=== PATIENT | female | born 1960 | race African-American/Black ===

== ENCOUNTER 2020-12-12 07:48 | Inpatient (IN) | payer OTHER, MEDICARE ==
[2020-12-12] VITALS (28 sets, daily range): BP systolic 71–107; BP diastolic 44–66
[~2020-12-12] VITALS: Ht 157.5 cm; Wt 55.6 kg
--- NOTE | 2020-12-12 08:11 | PHYS DOC ---
Past Medical History Past Medical History stage IV lung CA Past Surgical History: No Surgical History Smoking Status: Former Smoker Alcohol Use: None Drug Use: None General Adult EDM: Chief Complaint: DYSPNEA/RESPIRATORY DISTRESS HPI: HPI: 60-year-old female with a history of stage IV lung cancer arrives in a private home via EMS after she complained of shortness of breath for last 24 hours. Reportedly she called EMS yesterday, but she was not transferred to the hospital. This morning her shortness of breath got worse and she required submental oxygen at home due to SPO2 in the 70s. She was placed on 15 L nonrebreather by EMS prior to transfer to the emergency department with sats in the mid 90s. Patient complains of shortness of breath but is overall a poor historian secondary to her clinical condition. She states that she is a full code and wants CPR but is empatically refusing intubation. She has no family presenting with her at this time. Review of Systems: Review of Systems: Further ROS is unobtainable secondary to patient's clinical condition Heart Score: C/O Chest Pain: No Current Medications: Current Medications Medications (Trade) Dose Ordered Sig/Aaron Start Time Stop Time Status Last Admin Dose Admin Ceftriaxone Sodium (Rocephin) 2 gm 1X ONCE 12/12/20 08:15 12/12/20 08:16 UNV Furosemide (Lasix) 40 mg 1X ONCE 12/12/20 08:15 12/12/20 08:16 UNV Allergies: Allergies: Allergies Coded Allergies Type Severity Reaction Last Updated Verified No Known Drug Allergies 12/12/20 No Physical Exam: PE: Constitutional: Chronically ill, cachectic, speaks in short sentences, drowsy. HENT: Atraumatic, bilateral external ears normal, nose normal. Eyes: PERRLA, EOMI, conjunctiva normal, no discharge. Neck: Normal range of motion, supple, no stridor. Cardiovascular: Heart rate regular rhythm. 2+ radial pulses Lungs & Thorax: Moderate respiratory distress. Bilateral crackles are appreciated Abdomen: Soft, no tenderness Skin: Warm, dry. Extremities: No tenderness, no cyanosis, ROM intact, 1+ edema. Cachexia noted Neurologic: No focal deficits noted. GCS 15. Current Patient Data: Labs: Laboratory Tests Test 12/12/20 08:02 12/12/20 08:14 12/12/20 08:20 12/12/20 08:35 O2 Saturation 93 % (92-99) Arterial Blood pH 7.27 (7.35-7.45) Arterial Blood pCO2 at Patient Temp 58 mmHg (35-46) Arterial Blood pO2 at Patient Temp 82 mmHg (65-108) Arterial Blood HCO3 26 mmol/L (21-28) Arterial Blood Base Excess -2 mmol/L (-3-3) FiO2 100% bipap White Blood Count 29.0 x10^3/uL (4.0-11.0) Red Blood Count 3.47 x10^6/uL (3.50-5.40) Hemoglobin 8.2 g/dL (12.0-15.5) Hematocrit 26.9 % (36.0-47.0) Mean Corpuscular Volume 78 fL (79-100) Mean Corpuscular Hemoglobin 24 pg (25-35) Mean Corpuscular Hemoglobin Concent 31 g/dL (31-37) Red Cell Distribution Width 19.0 % (11.5-14.5) Platelet Count 263 x10^3/uL (140-400) Neutrophils (%) (Auto) 93 % (31-73) Lymphocytes (%) (Auto) 5 % (24-48) Monocytes (%) (Auto) 2 % (0-9) Eosinophils (%) (Auto) 0 % (0-3) Basophils (%) (Auto) 0 % (0-3) Neutrophils # (Auto) 26.8 x10^3/uL (1.8-7.7) Lymphocytes # (Auto) 1.5 x10^3/uL (1.0-4.8) Monocytes # (Auto) 0.6 x10^3/uL (0.0-1.1) Eosinophils # (Auto) 0.0 x10^3/uL (0.0-0.7) Basophils # (Auto) 0.1 x10^3/uL (0.0-0.2) Sodium Level 136 mmol/L (136-145) Potassium Level 6.7 mmol/L (3.5-5.1) Chloride Level 102 mmol/L (98-107) Carbon Dioxide Level 28 mmol/L (21-32) Anion Gap 6 (6-14) Blood Urea Nitrogen 50 mg/dL (7-20) Creatinine 1.1 mg/dL (0.6-1.0) Estimated GFR (Cockcroft-Gault) 61.3 Glucose Level 106 mg/dL (70-99) Lactic Acid Level 1.7 mmol/L (0.4-2.0) Calcium Level 8.2 mg/dL (8.5-10.1) Troponin I Quantitative 0.020 ng/mL (0.000-0.055) FO-Wtt-[id number]-Type Natriuretic Peptide 895 pg/mL (0-124) SARS-CoV-2 Antigen (Rapid) Negative (NEGATIVE) Urine Collection Type Unknown Urine Color Yellow Urine Clarity Cloudy Urine pH 5.0 (<5.0-8.0) Urine Specific [place] 1.020 (1.000-1.030) Urine Protein 30 mg/dL (NEG-TRACE) Urine Glucose (UA) Negative mg/dL (NEG) Urine Ketones (Stick) Negative mg/dL (NEG) Urine Blood Negative (NEG) Urine Nitrite Negative (NEG) Urine Bilirubin Small (NEG) Urine Urobilinogen Dipstick 1.0 mg/dL (0.2 mg/dL) Urine Leukocyte Esterase Negative (NEG) Urine RBC 0 /HPF (0-2) Urine WBC 1-4 /HPF (0-4) Urine Squamous Epithelial Cells Mod /LPF Urine Bacteria Few /HPF (0-FEW) Urine Hyaline Casts Many /HPF Urine Mucus Marked /LPF Vital Signs: Vital Signs Date Time Temp Pulse Resp B/P (MAP) Pulse Ox O2 Delivery O2 Flow Rate FiO2 12/12/20 08:45 120 37 91/57 (68) 86 NonRebreather Mask 12/12/20 08:00 93 BiPAP/CPAP 12/12/20 07:48 98.2 128 26 81/51 (61) 97 NonRebreather Mask 98.2 EKG: EKG: Time read: 0805 Sinus tachycardia rate of 127, no ST-T wave changes, no ectopic beats, normal axis, normal NE, QRS, and QTc intervals. Impression: Normal EKG. interpreted by meBurt D.O. Radiology/Procedures: Radiology/Procedures: PROCEDURE: CHEST AP ONLY EXAM: CHEST ONE VIEW. HISTORY: Dyspnea. COMPARISON: None. FINDINGS: A frontal view of the chest is obtained. There is dense consolidation throughout both midlungs and the left base. A partially obscured mass in the right base cannot be excluded. A moderate left pleural effusion cannot be excluded. There is no pneumothorax. The heart is not enlarged. IMPRESSION: 1. Dense bilateral consolidation consistent with multifocal pneumonia. Underlying obscured masses cannot be excluded. CT could further evaluate if the diagnosis is not already known. Electronically signed by: Bhavani Dean MD (12/12/2020 8:58 AM) PROCEDURE: CT ANGIOGRAPHY CHEST Site ID: [id number] EXAMINATION: CTA chest. Technique: Axial images with coronal and sagittal reconstructions with MIP technique are performed of chest with angiogram protocol. 80 mL of Omnipaque 350 is administered intravenously. One or more of the following radiation dose reduction techniques was used: automated exposure control, adjustment of mA and/or KV according to patient size, and/or utilization of iterative reconstruction technique. HISTORY: 60 years Female Reason: shorntess of breath, lung CA, rule out PE COMPARISON: None. FINDINGS: There is good opacification of the pulmonary arteries with no evidence of pulmonary embolism. There are large areas of heterogeneous consolidation seen in both lungs with the evaluated portions of the lungs demonstrate clearing, numerous nodules suggestive of a metastatic disease. There are from large from mediastinal lymph nodes including a right paratracheal 3.3 cm node and the hilar lymphadenopathy is inseparable from the lung masses seen. There is no pleural effusion. No pericardial effusion. The thoracic aorta is normal in caliber. Sections of the upper abdomen demonstrate large adrenal masses partially visualized up to 11 cm on the right and the 7.6 cm in the left. The osseous structures demonstrate no lytic masses. Nonspecific punctate sclerotic foci in the mid thoracic spine could relate to bone islands or possibly early bone sclerotic metastasis. IMPRESSION: 1. No pulmonary embolism. 2. Large confluent areas of heterogeneous consolidation, related to underlying masses with possible superimposed pneumonia. There are also small lung nodules identified in the aerated portion of the lungs. There is also mediastinal and hilar lymphadenopathy and large adrenal masses compatible with metastatic disease. Electronically signed by: Kanu Monroy MD (12/12/2020 10:14 AM) Course & Med Decision Making: Course & Med Decision Making As stated in HPI, patient refused intubation. I offered her this procedure because she was unstable and suffering from respiratory failure. Patient had crackles on both sides of her lungs with high suspicion for fluid overload. Due to her hypotension judicious use of fluids was initiated with 500 cc of normal saline to start, patient was also given Lasix for her fluid overload. Lactate, cultures were obtained, Rocephin was given. I discussed care with Dr. Chambers the knowledge management advisor who will consult on the case. CTA emergently ordered due to concern for PE I discussed the case with the patient's , Mata. Patient has not currently on hospice but does have a home health nurse, the patient's is unsure about cancer diagnosis but notes there was a questionable lung mass versus pneumonia that was found on a plain film of the chest several months ago at the [facility]. Mata was updated on the patient's condition and critical illness. Insulin/D50/ calcium gluc given for hyperK. White blood cell count 29, mass versus pneumonia on x-ray. Patient will be admitted to the ICU in critical condition. She improved on the BiPAP blood pressure was improved after interventions. Additional fluids were given after patient tolerated earlier dose. Critical care time was 50 minutes which includes time at bedside, spent in discussion of patient's care with specialists and/or family members, with interpretation of laboratory and/or radiological studies and is exclusive of procedures. inpt team to follow CTA My Orders - BURT DYE DO Procedure Category Date Status Time Chest Ap Only RAD 12/12/20 Resulted 07:52 Sars Cov2 ([place]) LAB 12/12/20 In Process 07:53 Sars Antigen Ita Rapid LAB 12/12/20 Complete 07:53 Furosemide Inj (Lasix) PHA 12/12/20 Complete 08:15 Cbc W Autodiff LAB 12/12/20 In Process 08:02 Basic Metabolic Panel LAB 12/12/20 Complete 08:02 Ua, Cult If Indicated LAB 12/12/20 Complete 08:02 Nt-Pro Bnp LAB 12/12/20 Complete 08:02 Troponini LAB 12/12/20 Complete 08:02 Abg Only LAB 12/12/20 Complete 08:02 Arterial Puncture RT 12/12/20 Complete Withdraw Bld Pos Pressure RT 12/12/20 In Process Bipap/Cpap 12 Lead Ekg EKG 12/12/20 Logged 08:02 Lactic Acid With LAB 12/12/20 Complete Reflex 08:05 Blood Culture SUKUMAR 12/12/20 In Process 08:05 Ceftriaxone Iv Push PHA 12/12/20 Complete (Rocephin) 08:[address] 12/12/20 Logged 08:06 Norepinephrine Vial PHA 12/12/20 In Process (Levophed Vial) 08:30 Iv Normal Saline PHA 12/12/20 Complete 500ml Bag (Iv Sodium 08:30 Pos Pressure RT 12/12/20 Complete Bipap/Cpap Pulmonary Consult CONS 12/12/20 Transmitted 08:43 Manual Differential LAB 12/12/20 In Process 08:14 Iohexol 350 Mg/Ml PHA 12/12/20 Complete (Omnipaque 350 Mg/Ml) 09:00 Calcium Gluconate PHA 12/12/20 Complete (Calcium Gluconate) 09:00 Dextrose 50 % PHA 12/12/20 Complete (Dextrose 50%-Water 09:00 Insulin Regular Vial PHA 12/12/20 Complete (Humulin R Vial) 09:00 Iv Normal Saline PHA 12/12/20 In Process 1000ml Bag (Iv Sodium 09:00 Departure Departure Impression: Primary Impression: Respiratory failure with hypoxia Additional Impressions: Pneumonia Sepsis Hyperkalemia Disposition: ADMITTED INPATIENT Admitting Physician: EFE Harrington) Condition: CRITICAL BURT DEY DO Dec 12, 2020 08:11
[2020-12-12] MEDS ORDERED: FUROSEMIDE 40 MG/4 ML VIAL. IVP ONE ×2 (08:15→18:30)
[2020-12-12] MEDS ORDERED: cefTRIAXone IV Push 1 GM VIAL. IVP ONE (08:15)
[2020-12-12 08:25] LABS: BASO # 0.1 x10^3/uL (0.0-0.2); BASO % 0 % (0-3); EOS % 0 % (0-3); HEMATOCRIT 26.9 % (36.0-47.0); HEMOGLOBIN 8.2 g/dL (12.0-15.5); LYMPH # 1.5 x10^3/uL (1.0-4.8); LYMPH % 5 % (24-48); MEAN CORPUSCULAR HEMOGLOBIN 24 pg (25-35); MEAN CORPUSCULAR HGB CONC 31 g/dL (31-37); MEAN CORPUSCULAR VOLUME 78 fL (79-100); MONO # 0.6 x10^3/uL (0.0-1.1); MONO % 2 % (0-9); NEUT # 26.8 x10^3/uL (1.8-7.7); NEUT % 93 % (31-73); PLATELET COUNT 263 x10^3/uL (140-400); RED BLOOD COUNT 3.47 x10^6/uL (3.50-5.40)
[2020-12-12] MEDS ORDERED: IV NORMAL SALINE 500ML BAG 500 ML IV ONE (08:30)
[2020-12-12] MEDS ORDERED: NOREPINEPHRINE VIAL 8 MG in IV DEXTROSE 5% 250 ML IV ONE (08:30)
[2020-12-12 08:35] LABS: CALCIUM 8.2 mg/dL (8.5-10.1); CREATININE 1.1 mg/dL (0.6-1.0); GFR 61.3
[2020-12-12 08:40] LABS: POTASSIUM 6.7 mmol/L (3.5-5.1)
[2020-12-12 09:00] LABS: BASE EXCESS ABG -2 mmol/L (-3-3); HCO3 ABG 26 mmol/L (21-28); PCO2 ABG 58 mmHg (35-46); PO2 ABG 82 mmHg (65-108); SAT O2 ABG 93 % (92-99)
[2020-12-12] MEDS ORDERED: IOHEXOL 350 MG/ML 100 ML VIAL. IV ONE (09:00)
[2020-12-12] MEDS ORDERED: INSULIN REGULAR 100 UNIT/ML 3ML VIAL. IV ONE ×2 (09:00→15:45)
[2020-12-12] MEDS ORDERED: DEXTROSE 50% 25 GM / 50ML DISP.SYRIN. IV ONE ×2 (09:00→15:45)
[2020-12-12] MEDS ORDERED: CALCIUM GLUCONATE 1,000 MG/10 ML VIAL. IVP ONE (09:00)
[2020-12-12] MEDS ORDERED: IV NORMAL SALINE 1000ML BAG 1,000 ML IV ONE ×2 (09:00→15:30)
--- NOTE | 2020-12-12 09:00 | RAD ---
EXAM: CHEST ONE VIEW. HISTORY: Dyspnea. COMPARISON: None. FINDINGS: A frontal view of the chest is obtained. There is dense consolidation throughout both midlungs and the left base. A partially obscured mass in the right base cannot be excluded. A moderate left pleural effusion cannot be excluded. There is no pneumothorax. The heart is not enlarged. IMPRESSION: 1. Dense bilateral consolidation consistent with multifocal pneumonia. Underlying obscured masses can not be excluded. CT could further evaluate if the diagnosis is not already known. Electronically signed by: Bhavani Dean MD (12/12/2020 8:58 AM) [id number]
[2020-12-12 09:05] LABS: BILIRUBIN,URINE SMALL (NEG); CLARITY,URINE CLOUDY; COLOR,URINE YELLOW; NITRITE,URINE NEGATIVE (NEG); PROTEIN,URINE 30 mg/dL (NEG-TRACE)
[2020-12-12] MEDS ORDERED: VANCOMYCIN 1GM IVPB FOR OMNI 250 ML IV ONE (09:30)
[2020-12-12 09:34] LABS: BACTERIA,URINE FEW /HPF (0-FEW); HYALINE CASTS, URINE MANY /HPF; RBC,URINE 0 /HPF (0-2)
--- NOTE | 2020-12-12 10:16 | RAD ---
Site ID: [id number] EXAMINATION: CTA chest. Technique: Axial images with coronal and sagittal reconstructions with MIP technique are performed of chest with angiogram protocol. 80 mL of Omnipaque 350 is administered intravenously. One or more of the following radiation dose reduction techniques was used: automated exposure control , adjustment of mA and/or KV according to patient size, and/or utilization of iterative reconstructio n technique. HISTORY: 60 years Female Reason: shorntess of breath, lung CA, rule out PE COMPARISON: None. FINDINGS: There is good opacification of the pulmonary arteries with no evidence of pulmonary embolism. There a re large areas of heterogeneous consolidation seen in both lungs with the evaluated portions of the l ungs demonstrate clearing, numerous nodules suggestive of a metastatic disease. There are from large from mediastinal lymph nodes including a right paratracheal 3.3 cm node and the hilar lymphadenopathy is inseparable from the lung masses seen. There is no pleural effusion. No pericardial effusion. The thoracic aorta is normal in caliber. Sections of the upper abdomen demonstrate large adrenal masses partially visualized up to 11 cm on th e right and the 7.6 cm in the left. The osseous structures demonstrate no lytic masses. Nonspecific punctate sclerotic foci in the mid th oracic spine could relate to bone islands or possibly early bone sclerotic metastasis. IMPRESSION: 1. No pulmonary embolism. 2. Large confluent areas of heterogeneous consolidation, related to underlying masses with possible s uperimposed pneumonia. There are also small lung nodules identified in the aerated portion of the bharati gs. There is also mediastinal and hilar lymphadenopathy and large adrenal masses compatible with meta static disease. Electronically signed by: Kanu Monroy MD (12/12/2020 10:14 AM) [place] [id number]
[2020-12-12] MEDS ORDERED: ATROPINE 0.5 MG/5 ML DISP.SYRINGE. IV PRN (11:00)
[2020-12-12] MEDS ORDERED: IV NORMAL SALINE 500ML BAG 500 ML IV PRN (11:00)
[2020-12-12 11:07] LABS: % BANDS 1 % (0-9); % LYMPHS 4 % (24-48); % MONOS 2 % (0-10); % SEGS 93 % (35-66); NUCLEATED RBC 1; PLT ESTIMATE ADEQUATE (ADEQUATE)
[2020-12-12 12:20] LABS: BASE EXCESS ABG -4 mmol/L (-3-3); HCO3 ABG 24 mmol/L (21-28); PO2 ABG 102 mmHg (65-108); SAT O2 ABG 96 % (92-99)
[2020-12-12 12:28] LABS: PCO2 ABG 61 mmHg (35-46)
[2020-12-12 12:30] LABS: FIO2 ABG 100
--- NOTE | 2020-12-12 13:02 | PDOC ---
PULMONARY PROGRESS NOTES DATE: 12/12/20 TIME: 12:58 Vitals Vital Signs Date Time Temp Pulse Resp B/P (MAP) Pulse Ox O2 Delivery O2 Flow Rate FiO2 12/12/20 11:22 96 BiPAP/CPAP 12/12/20 09:15 120 32 97/55 (69) 12/12/20 08:35 15.0 12/12/20 07:48 98.2 98.2 Labs Laboratory Tests Test 12/12/20 08:02 12/12/20 08:14 12/12/20 08:20 12/12/20 08:35 O2 Saturation 93 % (92-99) Arterial Blood pH 7.27 (7.35-7.45) Arterial Blood pCO2 at Patient Temp 58 mmHg (35-46) Arterial Blood pO2 at Patient Temp 82 mmHg (65-108) Arterial Blood HCO3 26 mmol/L (21-28) Arterial Blood Base Excess -2 mmol/L (-3-3) FiO2 100% bipap White Blood Count 29.0 x10^3/uL (4.0-11.0) Red Blood Count 3.47 x10^6/uL (3.50-5.40) Hemoglobin 8.2 g/dL (12.0-15.5) Hematocrit 26.9 % (36.0-47.0) Mean Corpuscular Volume 78 fL (79-100) Mean Corpuscular Hemoglobin 24 pg (25-35) Mean Corpuscular Hemoglobin Concent 31 g/dL (31-37) Red Cell Distribution Width 19.0 % (11.5-14.5) Platelet Count 263 x10^3/uL (140-400) Neutrophils (%) (Auto) 93 % (31-73) Lymphocytes (%) (Auto) 5 % (24-48) Monocytes (%) (Auto) 2 % (0-9) Eosinophils (%) (Auto) 0 % (0-3) Basophils (%) (Auto) 0 % (0-3) Neutrophils # (Auto) 26.8 x10^3/uL (1.8-7.7) Lymphocytes # (Auto) 1.5 x10^3/uL (1.0-4.8) Monocytes # (Auto) 0.6 x10^3/uL (0.0-1.1) Eosinophils # (Auto) 0.0 x10^3/uL (0.0-0.7) Basophils # (Auto) 0.1 x10^3/uL (0.0-0.2) Segmented Neutrophils % 93 % (35-66) Band Neutrophils % 1 % (0-9) Lymphocytes % 4 % (24-48) Monocytes % 2 % (0-10) Nucleated Red Blood Cells 1 Platelet Estimate Adequate (ADEQUATE) Sodium Level 136 mmol/L (136-145) Potassium Level 6.7 mmol/L (3.5-5.1) Chloride Level 102 mmol/L (98-107) Carbon Dioxide Level 28 mmol/L (21-32) Anion Gap 6 (6-14) Blood Urea Nitrogen 50 mg/dL (7-20) Creatinine 1.1 mg/dL (0.6-1.0) Estimated GFR (Cockcroft-Gault) 61.3 Glucose Level 106 mg/dL (70-99) Lactic Acid Level 1.7 mmol/L (0.4-2.0) Calcium Level 8.2 mg/dL (8.5-10.1) Troponin I Quantitative 0.020 ng/mL (0.000-0.055) HZ-Zom-E-Type Natriuretic Peptide 895 pg/mL (0-124) SARS-CoV-2 Antigen (Rapid) Negative (NEGATIVE) Urine Collection Type Unknown Urine Color Yellow Urine Clarity Cloudy Urine pH 5.0 (<5.0-8.0) Urine Specific [place] 1.020 (1.000-1.030) Urine Protein 30 mg/dL (NEG-TRACE) Urine Glucose (UA) Negative mg/dL (NEG) Urine Ketones (Stick) Negative mg/dL (NEG) Urine Blood Negative (NEG) Urine Nitrite Negative (NEG) Urine Bilirubin Small (NEG) Urine Urobilinogen Dipstick 1.0 mg/dL (0.2 mg/dL) Urine Leukocyte Esterase Negative (NEG) Urine RBC 0 /HPF (0-2) Urine WBC 1-4 /HPF (0-4) Urine Squamous Epithelial Cells Mod /LPF Urine Bacteria Few /HPF (0-FEW) Urine Hyaline Casts Many /HPF Urine Mucus Marked /LPF Test 12/12/20 12:16 O2 Saturation 96 % (92-99) Arterial Blood pH 7.22 (7.35-7.45) Arterial Blood pCO2 at Patient Temp 61 mmHg (35-46) Arterial Blood pO2 at Patient Temp 102 mmHg (65-108) Arterial Blood HCO3 24 mmol/L (21-28) Arterial Blood Base Excess -4 mmol/L (-3-3) FiO2 100 Laboratory Tests Test 12/12/20 08:02 12/12/20 08:14 12/12/20 08:20 12/12/20 08:35 O2 Saturation 93 % (92-99) Arterial Blood pH 7.27 (7.35-7.45) Arterial Blood pCO2 at Patient Temp 58 mmHg (35-46) Arterial Blood pO2 at Patient Temp 82 mmHg (65-108) Arterial Blood HCO3 26 mmol/L (21-28) Arterial Blood Base Excess -2 mmol/L (-3-3) FiO2 100% bipap White Blood Count 29.0 x10^3/uL (4.0-11.0) Red Blood Count 3.47 x10^6/uL (3.50-5.40) Hemoglobin 8.2 g/dL (12.0-15.5) Hematocrit 26.9 % (36.0-47.0) Mean Corpuscular Volume 78 fL (79-100) Mean Corpuscular Hemoglobin 24 pg (25-35) Mean Corpuscular Hemoglobin Concent 31 g/dL (31-37) Red Cell Distribution Width 19.0 % (11.5-14.5) Platelet Count 263 x10^3/uL (140-400) Neutrophils (%) (Auto) 93 % (31-73) Lymphocytes (%) (Auto) 5 % (24-48) Monocytes (%) (Auto) 2 % (0-9) Eosinophils (%) (Auto) 0 % (0-3) Basophils (%) (Auto) 0 % (0-3) Neutrophils # (Auto) 26.8 x10^3/uL (1.8-7.7) Lymphocytes # (Auto) 1.5 x10^3/uL (1.0-4.8) Monocytes # (Auto) 0.6 x10^3/uL (0.0-1.1) Eosinophils # (Auto) 0.0 x10^3/uL (0.0-0.7) Basophils # (Auto) 0.1 x10^3/uL (0.0-0.2) Segmented Neutrophils % 93 % (35-66) Band Neutrophils % 1 % (0-9) Lymphocytes % 4 % (24-48) Monocytes % 2 % (0-10) Nucleated Red Blood Cells 1 Platelet Estimate Adequate (ADEQUATE) Sodium Level 136 mmol/L (136-145) Potassium Level 6.7 mmol/L (3.5-5.1) Chloride Level 102 mmol/L (98-107) Carbon Dioxide Level 28 mmol/L (21-32) Anion Gap 6 (6-14) Blood Urea Nitrogen 50 mg/dL (7-20) Creatinine 1.1 mg/dL (0.6-1.0) Estimated GFR (Cockcroft-Gault) 61.3 Glucose Level 106 mg/dL (70-99) Lactic Acid Level 1.7 mmol/L (0.4-2.0) Calcium Level 8.2 mg/dL (8.5-10.1) Troponin I Quantitative 0.020 ng/mL (0.000-0.055) CV-Ytq-C-Type Natriuretic Peptide 895 pg/mL (0-124) SARS-CoV-2 Antigen (Rapid) Negative (NEGATIVE) Urine Collection Type Unknown Urine Color Yellow Urine Clarity Cloudy Urine pH 5.0 (<5.0-8.0) Urine Specific Joseph[place] 1.020 (1.000-1.030) Urine Protein 30 mg/dL (NEG-TRACE) Urine Glucose (UA) Negative mg/dL (NEG) Urine Ketones (Stick) Negative mg/dL (NEG) Urine Blood Negative (NEG) Urine Nitrite Negative (NEG) Urine Bilirubin Small (NEG) Urine Urobilinogen Dipstick 1.0 mg/dL (0.2 mg/dL) Urine Leukocyte Esterase Negative (NEG) Urine RBC 0 /HPF (0-2) Urine WBC 1-4 /HPF (0-4) Urine Squamous Epithelial Cells Mod /LPF Urine Bacteria Few /HPF (0-FEW) Urine Hyaline Casts Many /HPF Urine Mucus Marked /LPF Test 12/12/20 12:16 O2 Saturation 96 % (92-99) Arterial Blood pH 7.22 (7.35-7.45) Arterial Blood pCO2 at Patient Temp 61 mmHg (35-46) Arterial Blood pO2 at Patient Temp 102 mmHg (65-108) Arterial Blood HCO3 24 mmol/L (21-28) Arterial Blood Base Excess -4 mmol/L (-3-3) FiO2 100 Impression . Full note dictated Acute hypoxemic respiratory failure, multifactorial Septic shock Postobstructive pneumonia See order HIWOT CARRILLO MD Dec 12, 2020 13:02
[2020-12-12] MEDS ORDERED: IV RINGERS,LACTATED 500ML 500 ML IV ONE (13:15)
[2020-12-12 14:29] LABS: CALCIUM 8.5 mg/dL (8.5-10.1); CREATININE 1.1 mg/dL (0.6-1.0); GFR 61.3
[2020-12-12 14:42] LABS: POTASSIUM 6.3 mmol/L (3.5-5.1)
[2020-12-12] MEDS ORDERED: DEXTROSE 50% 25 GM / 50ML DISP.SYRIN. IV PRN (14:45)
[2020-12-12] MEDS ORDERED: PROCHLORPERAZINE 10 MG/2 ML VIAL. IV PRN (14:45)
[2020-12-12] MEDS ORDERED: SENNOSIDES 8.6 MG TABLET PO PRN (14:45)
[2020-12-12] MEDS ORDERED: DOCUSATE SODIUM 100 MG CAPSULE. PO PRN (14:45)
[2020-12-12] MEDS ORDERED: ZOLPIDEM 5 MG TABLET. PO PRN (14:45)
[2020-12-12] MEDS ORDERED: LORazepam 0.5 MG TABLET PO PRN (14:45)
[2020-12-12] MEDS ORDERED: ACETAMINOPHEN 325 MG TABLET. PO PRN (14:45)
[2020-12-12] MEDS ORDERED: ONDANSETRON PF 4 MG/2 ML VIAL. IVP PRN (14:45)
--- NOTE | 2020-12-12 15:00 | CONS ---
DATE OF CONSULTATION: 12/12/2020 ATTENDING PHYSICIAN: Dr. Foster. REASON FOR CONSULTATION: The patient is seen in pulmonary consultation at the request of Dr. Foster for acute on chronic hypercapnic hypoxemic respiratory failure. HISTORY OF PRESENT ILLNESS: The patient is a 60-year-old with a history of known stage 4 lung cancer who arrived via EMS with complaints of shortness of breath over the last 24 hours. The patient was evaluated in the Emergency Department and found to have a chest x-ray, which was severely abnormal compatible with stage 4 lung cancer. She had an arterial blood gas revealing a pH of 7.27, PaCO2 of 58, pO2 of 82 on 100% BiPAP. She had a white count of 29,000. Hemoglobin and hematocrit were noted. She was seen in the Emergency Department at the time of my evaluation. She was awake, alert, following some commands. She was on BiPAP. PAST MEDICAL HISTORY: Stage 4 lung cancer. Specifics are unknown. SOCIAL HISTORY: She is a former smoker. ALLERGIES: No known drug allergies. PHYSICAL EXAMINATION: GENERAL: The patient was seen in the Emergency Department. She was on BiPAP, awake, alert, following commands. O2 saturations greater than 92%. She was slightly hypotensive. She was given IV fluids and started on Levophed. NECK: Jugular venous distention was not elevated. CHEST: Full expansion. LUNGS: Bilateral rhonchi. No wheezes. CARDIOVASCULAR: Regular rate and rhythm with S1, S2, no S3. ABDOMEN: Soft. EXTREMITIES: No clubbing, cyanosis or edema. LABORATORY DATA: White count was 29,000, hemoglobin 8.2. Electrolytes were noted. Potassium was elevated. BUN was elevated. Creatinine was elevated. Troponin was not elevated. BNP was elevated. DIAGNOSTIC IMAGING: She underwent a CT angiogram. I personally reviewed. There was no pulmonary embolism. There was large areas of heterogeneous consolidation in both lungs. There is large mediastinal lymph nodes including a right paratracheal lymph node. There was hilar lymphadenopathy. There was no significant effusion. IMPRESSION: 1. Acute hypoxemic hypercapnic respiratory failure, multifactorial. 2. Abnormal CT chest revealing no evidence of pulmonary embolism. There was evidence of confluent heterogeneous lung masses compatible with a history of stage 4 lung cancer. 3. History of stage 4 lung cancer. 4. Hypotension related to sepsis. 5. Sepsis. 6. Possible postobstructive pneumonia. 7. Chronic obstructive pulmonary disease. 8. Hyperkalemia. PLAN: 1. Continue support with BiPAP. The patient does not wish to be intubated. 2. Continue IV fluids. 3. Pressors to maintain mean arterial pressure above 60. 4. IV antibiotics. 5. DVT prophylaxis. I do appreciate the privilege in sharing in the patient's care. PARAMJIT DR: Sky TID: [id number]
--- NOTE | 2020-12-12 15:20 | PDOC1 ---
History and Physical Date of Service: DOS: DATE: 12/12/20 TIME: 15:08 Chief Complaint: Chief Complain: Shortness of breath History of Present Illness: HPI: History obtained from discussion with the ED physician and chart review: 60-year-old female with past medical history of stage IV lung cancer who arrives to the ED with complaints of shortness of breath that worsened in the last 24 hours. Unfortunately my history is limited due to her BiPAP and unable to talk due to her fatigue. This morning her shortness of breath got worse and she was on home supplemental oxygen and she desaturated down to 70%. She was placed on 15 L nonrebreather by EMS that improved to the 90s. Upon arrival to the ED she was placed on BiPAP saturating in the 80s. ABG was obtained showing CO2 el evated at 60 mmHg. Past Medical/Surgical History: PMH/PSH: Past Medical History stage IV lung CA Past Surgical History: No Surgical History Allergies: Allergies: Coded Allergies: No Known Drug Allergies (Unverified , 12/12/20) Family History: Family History: Unable to obtain due to patient's mental status Social History: Social History: Smoking Status: Former Smoker Alcohol Use: None Drug Use: None Current Medications: Current Medications Current Medications Furosemide (Lasix) 40 mg 1X ONCE IVP Last administered on 12/12/20at 08:26; Start 12/12/20 at 08:15; Stop 12/12/20 at 08:16; Status DC Ceftriaxone Sodium (Rocephin) 2 gm 1X ONCE IVP Last administered on 12/12/20at 08:26; Start 12/12/20 at 08:15; Stop 12/12/20 at 08:16; Status DC Norepinephrine Bitartrate 8 mg/ Dextrose 258 ml @ 8.785 mls/ hr 1X ONCE IV Last administered on 12/12/20at 08:35; Start 12/12/20 at 08:30; Stop 12/13/20 at 13:52 Sodium Chloride 500 ml @ 500 mls/hr 1X ONCE IV Last administered on 12/12/20at 08:33; Start 12/12/20 at 08:30; Stop 12/12/20 at 09:29; Status DC Iohexol (Omnipaque 350 Mg/ml) 80 ml 1X ONCE IV Last administered on 12/12/20at 09:45; Start 12/12/20 at 09:00; Stop 12/12/20 at 09:01; Status DC Calcium Gluconate (Calcium Gluconate) 2,000 mg 1X ONCE IVP Last administered on 12/12/20at 09:13; Start 12/12/20 at 09:00; Stop 12/12/20 at 09:01; Status DC Dextrose (Dextrose 50%-Water Syringe) 25 gm 1X ONCE IV Last administered on 12/12/20at 09:13; Start 12/12/20 at 09:00; Stop 12/12/20 at 09:01; Status DC Insulin Human Regular (HumuLIN R VIAL) 10 unit 1X ONCE IV Last administered on 12/12/20at 09:14; Start 12/12/20 at 09:00; Stop 12/12/20 at 09:01; Status DC Sodium Chloride 1,000 ml @ 1,000 mls/hr 1X ONCE IV Last administered on 12/12/20at 09:12; Start 12/12/20 at 09:00; Stop 12/12/20 at 09:59; Status DC Vancomycin HCl (Vanco Per Pharmacy) 1 each PRN DAILY PRN MC SEE COMMENTS; Start 12/12/20 at 09:30 Cefepime HCl (Maxipime) 2 gm DAILY IVP ; Start 12/13/20 at 09:00 Metronidazole 100 ml @ 100 mls/hr Q12HR IV ; Start 12/12/20 at 21:00 Metronidazole 100 ml @ 100 mls/hr 1X ONCE IV Last administered on 12/12/20at 13:51; Start 12/12/20 at 09:30; Stop 12/12/20 at 10:29; Status DC Vancomycin HCl 250 ml @ 250 mls/hr 1X ONCE IV Last administered on 12/12/20at 10:57; Start 12/12/20 at 09:30; Stop 12/12/20 at 10:29; Status DC Dexmedetomidine HCl 400 mcg/ Sodium Chloride 100 ml @ 2.27 mls/hr CONT PRN IV PER PROTOCOL; Start 12/12/20 at 11:00 Sodium Chloride 500 ml @ 500 mls/hr 1X PRN PRN IV SEE COMMENTS; Start 12/12/20 at 11:00 Atropine Sulfate (ATROPINE 0.5mg SYRINGE) 0.5 mg PRN Q5MIN PRN IV SEE COMMENTS; Start 12/12/20 at 11:00 Ringer's Solution 500 ml @ 500 mls/hr 1X ONCE IV Last administered on 12/12/20at 13:15; Start 12/12/20 at 13:15; Stop 12/12/20 at 14:14; Status DC Sennosides (Senna) 17.2 mg PRN BID PRN PO CONSTIPATION; Start 12/12/20 at 14:45 Docusate Sodium (Colace) 100 mg PRN DAILY PRN PO HARD STOOLS; Start 12/12/20 at 14:45 Ondansetron HCl (Zofran) 4 mg PRN Q6HRS PRN IVP NAUSEA/VOMITING; Start 12/12/20 at 14:45 Dextrose (Dextrose 50%-Water Syringe) 12.5 gm PRN Q15MIN PRN IV SEE COMMENTS; Start 12/12/20 at 14:45 Acetaminophen (Tylenol) 650 mg PRN Q4HRS PRN PO TEMP OVER 100.4F OR MILD PAIN; Start 12/12/20 at 14:45 Lorazepam (Ativan) 0.5 mg PRN Q6HRS PRN PO ANXIETY / AGITATION; Start 12/12/20 at 14:45 Lorazepam (Ativan Inj) 0.25 mg PRN Q4HRS PRN IV ANXIETY / AGITATION; Start 12/12/20 at 14:45 Heparin Sodium (Porcine) (Heparin Sodium) 5,000 unit Q12HR SQ ; Start 12/12/20 at 15:00 Pantoprazole Sodium (PROTONIX VIAL for IV PUSH) 40 mg DAILYAC IVP ; Start 12/12/20 at 16:30 Prochlorperazine Edisylate (Compazine) 10 mg PRN Q6HRS PRN IV NAUSEA/VOMITING; Start 12/12/20 at 14:45 Zolpidem Tartrate (Ambien) 2.5 mg PRN QHS PRN PO INSOMNIA; Start 12/12/20 at 14:45 ROS: Review of Systems Review of System Unable to obtain due to mental status except for positive for shortness of breath Physical Exam: Vital Signs: Vital Signs Date Time Temp Pulse Resp B/P (MAP) Pulse Ox O2 Delivery O2 Flow Rate FiO2 12/12/20 12:24 93 BiPAP/CPAP 12/12/20 09:15 120 32 97/55 (69) 12/12/20 08:35 15.0 12/12/20 07:48 98.2 98.2 Physcial Exam: General: Chronically ill-appearing and cachectic HEENT: Pupils equally round and reactive to light, EOMI, no discharge, normal conjunctiva Neck: Supple, no nuchal rigidity, no JVD, trachea midline, no tenderness Cardiac: RRR, no murmurs, no gallops, no rubs. Tolerating BiPAP Chest/Lungs: CTAB, no wheeze, no rhonchi, no crackles Abdomen: soft, non-distended, no guarding, no peritoneal signs, non-tender Back: No tenderness Extremities: Muscle wasting in all extremities Neuro: Alert and oriented x 4, no focal deficits, normal speech Labs: Labs: Laboratory Tests Test 12/12/20 08:02 12/12/20 08:14 12/12/20 08:20 12/12/20 08:35 O2 Saturation 93 % (92-99) Arterial Blood pH 7.27 (7.35-7.45) Arterial Blood pCO2 at Patient Temp 58 mmHg (35-46) Arterial Blood pO2 at Patient Temp 82 mmHg (65-108) Arterial Blood HCO3 26 mmol/L (21-28) Arterial Blood Base Excess -2 mmol/L (-3-3) FiO2 100% bipap White Blood Count 29.0 x10^3/uL (4.0-11.0) Red Blood Count 3.47 x10^6/uL (3.50-5.40) Hemoglobin 8.2 g/dL (12.0-15.5) Hematocrit 26.9 % (36.0-47.0) Mean Corpuscular Volume 78 fL (79-100) Mean Corpuscular Hemoglobin 24 pg (25-35) Mean Corpuscular Hemoglobin Concent 31 g/dL (31-37) Red Cell Distribution Width 19.0 % (11.5-14.5) Platelet Count 263 x10^3/uL (140-400) Neutrophils (%) (Auto) 93 % (31-73) Lymphocytes (%) (Auto) 5 % (24-48) Monocytes (%) (Auto) 2 % (0-9) Eosinophils (%) (Auto) 0 % (0-3) Basophils (%) (Auto) 0 % (0-3) Neutrophils # (Auto) 26.8 x10^3/uL (1.8-7.7) Lymphocytes # (Auto) 1.5 x10^3/uL (1.0-4.8) Monocytes # (Auto) 0.6 x10^3/uL (0.0-1.1) Eosinophils # (Auto) 0.0 x10^3/uL (0.0-0.7) Basophils # (Auto) 0.1 x10^3/uL (0.0-0.2) Segmented Neutrophils % 93 % (35-66) Band Neutrophils % 1 % (0-9) Lymphocytes % 4 % (24-48) Monocytes % 2 % (0-10) Nucleated Red Blood Cells 1 Platelet Estimate Adequate (ADEQUATE) Sodium Level 136 mmol/L (136-145) Potassium Level 6.7 mmol/L (3.5-5.1) Chloride Level 102 mmol/L (98-107) Carbon Dioxide Level 28 mmol/L (21-32) Anion Gap 6 (6-14) Blood Urea Nitrogen 50 mg/dL (7-20) Creatinine 1.1 mg/dL (0.6-1.0) Estimated GFR (Cockcroft-Gault) 61.3 Glucose Level 106 mg/dL (70-99) Lactic Acid Level 1.7 mmol/L (0.4-2.0) Calcium Level 8.2 mg/dL (8.5-10.1) Troponin I Quantitative 0.020 ng/mL (0.000-0.055) EJ-Dqu-F-Type Natriuretic Peptide 895 pg/mL (0-124) SARS-CoV-2 Antigen (Rapid) Negative (NEGATIVE) Urine Collection Type Unknown Urine Color Yellow Urine Clarity Cloudy Urine pH 5.0 (<5.0-8.0) Urine Specific Dawson 1.020 (1.000-1.030) Urine Protein 30 mg/dL (NEG-TRACE) Urine Glucose (UA) Negative mg/dL (NEG) Urine Ketones (Stick) Negative mg/dL (NEG) Urine Blood Negative (NEG) Urine Nitrite Negative (NEG) Urine Bilirubin Small (NEG) Urine Urobilinogen Dipstick 1.0 mg/dL (0.2 mg/dL) Urine Leukocyte Esterase Negative (NEG) Urine RBC 0 /HPF (0-2) Urine WBC 1-4 /HPF (0-4) Urine Squamous Epithelial Cells Mod /LPF Urine Bacteria Few /HPF (0-FEW) Urine Hyaline Casts Many /HPF Urine Mucus Marked /LPF Test 12/12/20 12:16 12/12/20 13:05 O2 Saturation 96 % (92-99) Arterial Blood pH 7.22 (7.35-7.45) Arterial Blood pCO2 at Patient Temp 61 mmHg (35-46) Arterial Blood pO2 at Patient Temp 102 mmHg (65-108) Arterial Blood HCO3 24 mmol/L (21-28) Arterial Blood Base Excess -4 mmol/L (-3-3) FiO2 100 Sodium Level 137 mmol/L (136-145) Potassium Level 6.3 mmol/L (3.5-5.1) Chloride Level 103 mmol/L (98-107) Carbon Dioxide Level 27 mmol/L (21-32) Anion Gap 7 (6-14) Blood Urea Nitrogen 53 mg/dL (7-20) Creatinine 1.1 mg/dL (0.6-1.0) Estimated GFR (Cockcroft-Gault) 61.3 Glucose Level 120 mg/dL (70-99) Calcium Level 8.5 mg/dL (8.5-10.1) Laboratory Tests Test 12/12/20 08:02 12/12/20 08:14 12/12/20 08:20 12/12/20 08:35 O2 Saturation 93 % (92-99) Arterial Blood pH 7.27 (7.35-7.45) Arterial Blood pCO2 at Patient Temp 58 mmHg (35-46) Arterial Blood pO2 at Patient Temp 82 mmHg (65-108) Arterial Blood HCO3 26 mmol/L (21-28) Arterial Blood Base Excess -2 mmol/L (-3-3) FiO2 100% bipap White Blood Count 29.0 x10^3/uL (4.0-11.0) Red Blood Count 3.47 x10^6/uL (3.50-5.40) Hemoglobin 8.2 g/dL (12.0-15.5) Hematocrit 26.9 % (36.0-47.0) Mean Corpuscular Volume 78 fL (79-100) Mean Corpuscular Hemoglobin 24 pg (25-35) Mean Corpuscular Hemoglobin Concent 31 g/dL (31-37) Red Cell Distribution Width 19.0 % (11.5-14.5) Platelet Count 263 x10^3/uL (140-400) Neutrophils (%) (Auto) 93 % (31-73) Lymphocytes (%) (Auto) 5 % (24-48) Monocytes (%) (Auto) 2 % (0-9) Eosinophils (%) (Auto) 0 % (0-3) Basophils (%) (Auto) 0 % (0-3) Neutrophils # (Auto) 26.8 x10^3/uL (1.8-7.7) Lymphocytes # (Auto) 1.5 x10^3/uL (1.0-4.8) Monocytes # (Auto) 0.6 x10^3/uL (0.0-1.1) Eosinophils # (Auto) 0.0 x10^3/uL (0.0-0.7) Basophils # (Auto) 0.1 x10^3/uL (0.0-0.2) Segmented Neutrophils % 93 % (35-66) Band Neutrophils % 1 % (0-9) Lymphocytes % 4 % (24-48) Monocytes % 2 % (0-10) Nucleated Red Blood Cells 1 Platelet Estimate Adequate (ADEQUATE) Sodium Level 136 mmol/L (136-145) Potassium Level 6.7 mmol/L (3.5-5.1) Chloride Level 102 mmol/L (98-107) Carbon Dioxide Level 28 mmol/L (21-32) Anion Gap 6 (6-14) Blood Urea Nitrogen 50 mg/dL (7-20) Creatinine 1.1 mg/dL (0.6-1.0) Estimated GFR (Cockcroft-Gault) 61.3 Glucose Level 106 mg/dL (70-99) Lactic Acid Level 1.7 mmol/L (0.4-2.0) Calcium Level 8.2 mg/dL (8.5-10.1) Troponin I Quantitative 0.020 ng/mL (0.000-0.055) BS-Wjt-R-Type Natriuretic Peptide 895 pg/mL (0-124) SARS-CoV-2 Antigen (Rapid) Negative (NEGATIVE) Urine Collection Type Unknown Urine Color Yellow Urine Clarity Cloudy Urine pH 5.0 (<5.0-8.0) Urine Specific Dawson 1.020 (1.000-1.030) Urine Protein 30 mg/dL (NEG-TRACE) Urine Glucose (UA) Negative mg/dL (NEG) Urine Ketones (Stick) Negative mg/dL (NEG) Urine Blood Negative (NEG) Urine Nitrite Negative (NEG) Urine Bilirubin Small (NEG) Urine Urobilinogen Dipstick 1.0 mg/dL (0.2 mg/dL) Urine Leukocyte Esterase Negative (NEG) Urine RBC 0 /HPF (0-2) Urine WBC 1-4 /HPF (0-4) Urine Squamous Epithelial Cells Mod /LPF Urine Bacteria Few /HPF (0-FEW) Urine Hyaline Casts Many /HPF Urine Mucus Marked /LPF Test 12/12/20 12:16 12/12/20 13:05 O2 Saturation 96 % (92-99) Arterial Blood pH 7.22 (7.35-7.45) Arterial Blood pCO2 at Patient Temp 61 mmHg (35-46) Arterial Blood pO2 at Patient Temp 102 mmHg (65-108) Arterial Blood HCO3 24 mmol/L (21-28) Arterial Blood Base Excess -4 mmol/L (-3-3) FiO2 100 Sodium Level 137 mmol/L (136-145) Potassium Level 6.3 mmol/L (3.5-5.1) Chloride Level 103 mmol/L (98-107) Carbon Dioxide Level 27 mmol/L (21-32) Anion Gap 7 (6-14) Blood Urea Nitrogen 53 mg/dL (7-20) Creatinine 1.1 mg/dL (0.6-1.0) Estimated GFR (Cockcroft-Gault) 61.3 Glucose Level 120 mg/dL (70-99) Calcium Level 8.5 mg/dL (8.5-10.1) Images: Images PROCEDURE: CT ANGIOGRAPHY CHEST Site ID: [id number] EXAMINATION: CTA chest. Technique: Axial images with coronal and sagittal reconstructions with MIP technique are performed of chest with angiogram protocol. 80 mL of Omnipaque 350 is administered intravenously. One or more of the following radiation dose reduction techniques was used: automated exposure control, adjustment of mA and/or KV according to patient size, and/or utilization of iterative reconstruction technique. HISTORY: 60 years Female Reason: shorntess of breath, lung CA, rule out PE COMPARISON: None. FINDINGS: There is good opacification of the pulmonary arteries with no evidence of pulmonary embolism. There are large areas of heterogeneous consolidation seen in both lungs with the evaluated portions of the lungs demonstrate clearing, numerous nodules suggestive of a metastatic disease. There are from large from mediastinal lymph nodes including a right paratracheal 3.3 cm node and the hilar lymphadenopathy is inseparable from the lung masses seen. There is no pleural effusion. No pericardial effusion. The thoracic aorta is normal in caliber. Sections of the upper abdomen demonstrate large adrenal masses partially visualized up to 11 cm on the right and the 7.6 cm in the left. The osseous structures demonstrate no lytic masses. Nonspecific punctate s clerotic foci in the mid thoracic spine could relate to bone islands or possibly early bone sclerotic metastasis. IMPRESSION: 1. No pulmonary embolism. 2. Large confluent areas of heterogeneous consolidation, related to underlying masses with possible superimposed pneumonia. There are also small lung nodules identified in the aerated portion of the lungs. There is also mediastinal and hilar lymphadenopathy and large adrenal masses compatible with metastatic disease. PROCEDURE: CHEST AP ONLY EXAM: CHEST ONE VIEW. HISTORY: Dyspnea. COMPARISON: None. FINDINGS: A frontal view of the chest is obtained. There is dense consolidation throughout both midlungs and the left base. A partially obscured mass in the right base cannot be excluded. A moderate left pleural effusion cannot be excluded. There is no pneumothorax. The heart is not enlarged. IMPRESSION: 1. Dense bilateral consolidation consistent with multifocal pneumonia. Underlying obscured masses cannot be excluded. CT could further evaluate if the diagnosis is not already known. Assessment/Plan Assessment/Plan Sepsis due to superimposed pneumonia over multiple lung masses, Septic shock Bilateral multifocal pneumonia, possible gram-negative organisms Acute hypoxic and hypercapnic respiratory failure Stage IV lung cancer, unknown Hx of radiation or chemoTx Microcytic anemia of chronic disease, possible iron deficiency Hyperkalemia KIERSTEN due to vasomotor nephropathy Elevated BNP likely related to chronic hypoxic state rather than volume overload Admit to ICU for further management Continue pressors as needed to maintain maps greater than 55 BiPAP as needed to maintain O2 saturations 90% and CO2 less than 45 Pulmonology consult for vent management if needed, patient is currently refusing intubation Continue empiric IV antibiotics Pending blood and sputum cultures Pending pro calcitonin Calcium gluconate given for cardiac protection elevated potassium Heparin for DVT prophylaxis Protonix for stress ulcer GI prophylaxis ADA diet CODE STATUS partial DNR, no intubation Discussed with RN and SW Disposition inpatient management as above DPOA: A total of 55 minutes of critical care time was spent in reviewing chart, labs, and images. Discussed with RN and SW. Justifications for Admission Other Justification Sepsis GERALD RICHARDS MD Dec 12, 2020 15:20
[2020-12-12] MEDS: NOREPINEPHRINE VIAL 8 MG in IV DEXTROSE 5% 250 ML IV PRN ×2 (16:45→21:54)
[2020-12-12] MEDS: PANTOPRAZOLE IV PUSH 40 MG VIAL. IVP SCH (16:46)
[2020-12-12] MEDS: HEPARIN for SUB-Q USE 5,000 UNIT/ML VIAL. SQ SCH ×2 (16:47→21:00)
[2020-12-12] MEDS: VANCOMYCIN PER PHARMACY MC PRN (17:13)
--- NOTE | 2020-12-12 17:26 | NUR ---
Pharmacy Vancomycin Dosing Note S:Consulted to monitor and dose vancomycin started 12/12/20. O:CRISTOFER THOMAS is a 60 year old F with Sepsis, Pneumonia . Height: 5 feet, 2 inches Weight: 45.4 kg Virgil Body Weight: 50.10 Adjusted Body Weight: 48.22 Dosing Weight: Actual Other Antibiotics: Cefepime LABS: Last BUN: 53 Last Creatinine: 1.1 Creatinine Clearance: 39 mL/min Last WBC: 29 Last Procalcitonin: Tmax (past 24 hours): 98.2 Microbiology: - I/O: 3000/- Drug Levels: Last level: on at Last dose given 12/12/20 at 1057 Vancomycin Dosing: Loading Dose: 1000 mg x1 Dosing Weight: Actual Target Trough: 15-20 A: Based on: weigh and renal function P: 1. Begin Vancomycin 750 mg IV q24h 2. Follow up Trough level on 12/14/20 at 1030 3. Pharmacy will continue to monitor, follow and adjust therapy as needed. Yoly Moss [facility], 12/12/20 [id number]
[2020-12-12] MEDS: DEXMEDETOMIDINE 400 MCG in IV NORMAL SALINE 100ML 96 ML IV PRN (20:47)
[2020-12-12] MEDS ORDERED: HALOPERIDOL LACTATE 5 MG/ML VIAL. IVP PRN (21:00)
--- NOTE | 2020-12-12 21:06 | NUR ---
Throughout shift patient has been paranoid. When updating the white board patient constantly asks me "what are you writing on there? You're trying to kill me" and anytime I try to assess the patient or explain what I'm doing she says "You're lying, you're trying to kill me". Patient became very belligerent at 2030, screaming out, refusing medications, attempting to hit me when I was trying to untangle cords or put her bipap back on. Patient completely oriented to all orientation questions despite paranoia. Patient pulling off bipap, attempting to pull out IVs, and pulling off monitors. Patient informed on risks of not wearing bipap, getting medications through IV, and being off the monitor. Patient said "you shut up, you think you're the boss but you're not" and then turned over. I reiterated the risks to the patient and she said "I know". Patient yelling "I want to leave, and that's my right, you can't stop me". I told her I would call the doctor to see about starting paperwork and call her . Dr. Chambers notified, orders received to give 5 mg Haldol for agitation, and try to get patient to calm down. Marbin, wire charger, went in to talk with patient, reiterated the risks of leaving the hospital and patient said "I don't care". Attempted to call patient's 3 times, no answer, voicemail left to call unit as soon as possible. Patient continuing to be belligerent, yelling that she can just wait for an uber. Patient informed that we could not send patient home in an uber. Patient given Ativan and Precedex bolus, then started to fall asleep. Will continue to monitor patient and await 's call back. Addendum: 12/12/20 at [id number] by RONALD XIONG RN RN During this episode, lab came by to draw the potassium that was ordered for 2029. Patient still stating we are trying to kill her, refused lab draw. Informed of risks of refusing care, patient still refusing. Will attempt to get labs in AM
[2020-12-12] MEDS ORDERED: HALOPERIDOL LACTATE 5 MG/ML VIAL. IVP ONE (21:30)
[2020-12-12] MEDS ORDERED: INFLUENZA VAX SCREEN BY RX. MC PRN (22:15)
[2020-12-13] VITALS (29 sets, daily range): BP systolic 59–136; BP diastolic 42–91
[2020-12-13] MEDS: NOREPINEPHRINE VIAL 8 MG in IV DEXTROSE 5% 250 ML IV PRN ×3 (03:03→11:20)
[2020-12-13 05:16] LABS: BASO # 0.1 x10^3/uL (0.0-0.2); BASO % 0 % (0-3); EOS % 0 % (0-3); HEMATOCRIT 28.2 % (36.0-47.0); HEMOGLOBIN 8.4 g/dL (12.0-15.5); LYMPH # 1.8 x10^3/uL (1.0-4.8); LYMPH % 5 % (24-48); MEAN CORPUSCULAR HEMOGLOBIN 24 pg (25-35); MEAN CORPUSCULAR HGB CONC 30 g/dL (31-37); MEAN CORPUSCULAR VOLUME 80 fL (79-100); MONO % 3 % (0-9); NEUT # 33.1 x10^3/uL (1.8-7.7); NEUT % 92 % (31-73); PLATELET COUNT 245 x10^3/uL (140-400); RED BLOOD COUNT 3.54 x10^6/uL (3.50-5.40); RED CELL DISTRIBUTION WIDTH 19.6 % (11.5-14.5)
[2020-12-13] MEDS: DEXMEDETOMIDINE 400 MCG in IV NORMAL SALINE 100ML 96 ML IV PRN ×2 (05:21→19:46)
[2020-12-13 06:16] LABS: CALCIUM 8.2 mg/dL (8.5-10.1); CREATININE 1.1 mg/dL (0.6-1.0); GFR 61.3; MAGNESIUM 2.4 mg/dL (1.8-2.4); PHOSPHORUS 7.4 mg/dL (2.6-4.7); POTASSIUM 5.8 mmol/L (3.5-5.1)
[2020-12-13] MEDS: VANCOMYCIN PER PHARMACY MC PRN (07:47)
[2020-12-13 08:34] LABS: BASE EXCESS ABG -6 mmol/L (-3-3); HCO3 ABG 22 mmol/L (21-28); PCO2 ABG 57 mmHg (35-46); PO2 ABG 82 mmHg (65-108); SAT O2 ABG 94 % (92-99)
[2020-12-13 09:02] LABS: FIO2 ABG 100/BIPAP
--- NOTE | 2020-12-13 09:59 | PDOC ---
PULMONARY PROGRESS NOTES DATE: 12/13/20 TIME: 09:58 Subjective Patient currently on BiPAP I took the BiPAP off, patient awake alert She knows that she has stage IV cancer Reviewed the options of intubation versus not intubation, patient elected to proceed with DO NOT INTUBATE Vitals Vital Signs Date Time Temp Pulse Resp B/P (MAP) Pulse Ox O2 Delivery O2 Flow Rate FiO2 12/13/20 09:46 90 BiPAP/CPAP 12/13/20 06:00 85 24 97/57 12/13/20 04:00 97.5 97.5 12/12/20 08:35 15.0 ROS: No Nausea, No Chest Pain, No Abdominal Pain, No Increase Cough General: Alert Lungs: Crackles, Other (Diminished breath) Cardiovascular: S1, S2 Abdomen: Soft Neuro Exam: Alert Extremities: No Edema Skin: Warm Labs Laboratory Tests Test 12/12/20 08:02 12/12/20 08:14 12/12/20 08:20 12/12/20 08:35 O2 Saturation 93 % (92-99) Arterial Blood pH 7.27 (7.35-7.45) Arterial Blood pCO2 at Patient Temp 58 mmHg (35-46) Arterial Blood pO2 at Patient Temp 82 mmHg (65-108) Arterial Blood HCO3 26 mmol/L (21-28) Arterial Blood Base Excess -2 mmol/L (-3-3) FiO2 100% bipap White Blood Count 29.0 x10^3/uL (4.0-11.0) Red Blood Count 3.47 x10^6/uL (3.50-5.40) Hemoglobin 8.2 g/dL (12.0-15.5) Hematocrit 26.9 % (36.0-47.0) Mean Corpuscular Volume 78 fL (79-100) Mean Corpuscular Hemoglobin 24 pg (25-35) Mean Corpuscular Hemoglobin Concent 31 g/dL (31-37) Red Cell Distribution Width 19.0 % (11.5-14.5) Platelet Count 263 x10^3/uL (140-400) Neutrophils (%) (Auto) 93 % (31-73) Lymphocytes (%) (Auto) 5 % (24-48) Monocytes (%) (Auto) 2 % (0-9) Eosinophils (%) (Auto) 0 % (0-3) Basophils (%) (Auto) 0 % (0-3) Neutrophils # (Auto) 26.8 x10^3/uL (1.8-7.7) Lymphocytes # (Auto) 1.5 x10^3/uL (1.0-4.8) Monocytes # (Auto) 0.6 x10^3/uL (0.0-1.1) Eosinophils # (Auto) 0.0 x10^3/uL (0.0-0.7) Basophils # (Auto) 0.1 x10^3/uL (0.0-0.2) Segmented Neutrophils % 93 % (35-66) Band Neutrophils % 1 % (0-9) Lymphocytes % 4 % (24-48) Monocytes % 2 % (0-10) Nucleated Red Blood Cells 1 Platelet Estimate Adequate (ADEQUATE) Sodium Level 136 mmol/L (136-145) Potassium Level 6.7 mmol/L (3.5-5.1) Chloride Level 102 mmol/L (98-107) Carbon Dioxide Level 28 mmol/L (21-32) Anion Gap 6 (6-14) Blood Urea Nitrogen 50 mg/dL (7-20) Creatinine 1.1 mg/dL (0.6-1.0) Estimated GFR (Cockcroft-Gault) 61.3 Glucose Level 106 mg/dL (70-99) Lactic Acid Level 1.7 mmol/L (0.4-2.0) Calcium Level 8.2 mg/dL (8.5-10.1) Troponin I Quantitative 0.020 ng/mL (0.000-0.055) SC-Hou-E-Type Natriuretic Peptide 895 pg/mL (0-124) SARS-CoV-2 RNA (JIMMY) Negative (Negative) SARS-CoV-2 Antigen (Rapid) Negative (NEGATIVE) Urine Collection Type Unknown Urine Color Yellow Urine Clarity Cloudy Urine pH 5.0 (<5.0-8.0) Urine Specific [place] 1.020 (1.000-1.030) Urine Protein 30 mg/dL (NEG-TRACE) Urine Glucose (UA) Negative mg/dL (NEG) Urine Ketones (Stick) Negative mg/dL (NEG) Urine Blood Negative (NEG) Urine Nitrite Negative (NEG) Urine Bilirubin Small (NEG) Urine Urobilinogen Dipstick 1.0 mg/dL (0.2 mg/dL) Urine Leukocyte Esterase Negative (NEG) Urine RBC 0 /HPF (0-2) Urine WBC 1-4 /HPF (0-4) Urine Squamous Epithelial Cells Mod /LPF Urine Bacteria Few /HPF (0-FEW) Urine Hyaline Casts Many /HPF Urine Mucus Marked /LPF Test 12/12/20 12:16 12/12/20 13:05 12/13/20 04:55 12/13/20 08:00 O2 Saturation 96 % (92-99) 94 % (92-99) Arterial Blood pH 7.22 (7.35-7.45) 7.20 (7.35-7.45) Arterial Blood pCO2 at Patient Temp 61 mmHg (35-46) 57 mmHg (35-46) Arterial Blood pO2 at Patient Temp 102 mmHg (65-108) 82 mmHg (65-108) Arterial Blood HCO3 24 mmol/L (21-28) 22 mmol/L (21-28) Arterial Blood Base Excess -4 mmol/L (-3-3) -6 mmol/L (-3-3) FiO2 100 100/bipap Sodium Level 137 mmol/L (136-145) 137 mmol/L (136-145) Potassium Level 6.3 mmol/L (3.5-5.1) 5.8 mmol/L (3.5-5.1) Chloride Level 103 mmol/L (98-107) 104 mmol/L (98-107) Carbon Dioxide Level 27 mmol/L (21-32) 24 mmol/L (21-32) Anion Gap 7 (6-14) 9 (6-14) Blood Urea Nitrogen 53 mg/dL (7-20) 55 mg/dL (7-20) Creatinine 1.1 mg/dL (0.6-1.0) 1.1 mg/dL (0.6-1.0) Estimated GFR (Cockcroft-Gault) 61.3 61.3 Glucose Level 120 mg/dL (70-99) 184 mg/dL (70-99) Calcium Level 8.5 mg/dL (8.5-10.1) 8.2 mg/dL (8.5-10.1) Procalcitonin 2.54 ng/mL (0.00-0.10) White Blood Count 36.0 x10^3/uL (4.0-11.0) Red Blood Count 3.54 x10^6/uL (3.50-5.40) Hemoglobin 8.4 g/dL (12.0-15.5) Hematocrit 28.2 % (36.0-47.0) Mean Corpuscular Volume 80 fL (79-100) Mean Corpuscular Hemoglobin 24 pg (25-35) Mean Corpuscular Hemoglobin Concent 30 g/dL (31-37) Red Cell Distribution Width 19.6 % (11.5-14.5) Platelet Count 245 x10^3/uL (140-400) Neutrophils (%) (Auto) 92 % (31-73) Lymphocytes (%) (Auto) 5 % (24-48) Monocytes (%) (Auto) 3 % (0-9) Eosinophils (%) (Auto) 0 % (0-3) Basophils (%) (Auto) 0 % (0-3) Neutrophils # (Auto) 33.1 x10^3/uL (1.8-7.7) Lymphocytes # (Auto) 1.8 x10^3/uL (1.0-4.8) Monocytes # (Auto) 1.0 x10^3/uL (0.0-1.1) Eosinophils # (Auto) 0.0 x10^3/uL (0.0-0.7) Basophils # (Auto) 0.1 x10^3/uL (0.0-0.2) Phosphorus Level 7.4 mg/dL (2.6-4.7) Magnesium Level 2.4 mg/dL (1.8-2.4) Laboratory Tests Test 12/12/20 12:16 12/12/20 13:05 12/13/20 04:55 12/13/20 08:00 O2 Saturation 96 % (92-99) 94 % (92-99) Arterial Blood pH 7.22 (7.35-7.45) 7.20 (7.35-7.45) Arterial Blood pCO2 at Patient Temp 61 mmHg (35-46) 57 mmHg (35-46) Arterial Blood pO2 at Patient Temp 102 mmHg (65-108) 82 mmHg (65-108) Arterial Blood HCO3 24 mmol/L (21-28) 22 mmol/L (21-28) Arterial Blood Base Excess -4 mmol/L (-3-3) -6 mmol/L (-3-3) FiO2 100 100/bipap Sodium Level 137 mmol/L (136-145) 137 mmol/L (136-145) Potassium Level 6.3 mmol/L (3.5-5.1) 5.8 mmol/L (3.5-5.1) Chloride Level 103 mmol/L (98-107) 104 mmol/L (98-107) Carbon Dioxide Level 27 mmol/L (21-32) 24 mmol/L (21-32) Anion Gap 7 (6-14) 9 (6-14) Blood Urea Nitrogen 53 mg/dL (7-20) 55 mg/dL (7-20) Creatinine 1.1 mg/dL (0.6-1.0) 1.1 mg/dL (0.6-1.0) Estimated GFR (Cockcroft-Gault) 61.3 61.3 Glucose Level 120 mg/dL (70-99) 184 mg/dL (70-99) Calcium Level 8.5 mg/dL (8.5-10.1) 8.2 mg/dL (8.5-10.1) Procalcitonin 2.54 ng/mL (0.00-0.10) White Blood Count 36.0 x10^3/uL (4.0-11.0) Red Blood Count 3.54 x10^6/uL (3.50-5.40) Hemoglobin 8.4 g/dL (12.0-15.5) Hematocrit 28.2 % (36.0-47.0) Mean Corpuscular Volume 80 fL (79-100) Mean Corpuscular Hemoglobin 24 pg (25-35) Mean Corpuscular Hemoglobin Concent 30 g/dL (31-37) Red Cell Distribution Width 19.6 % (11.5-14.5) Platelet Count 245 x10^3/uL (140-400) Neutrophils (%) (Auto) 92 % (31-73) Lymphocytes (%) (Auto) 5 % (24-48) Monocytes (%) (Auto) 3 % (0-9) Eosinophils (%) (Auto) 0 % (0-3) Basophils (%) (Auto) 0 % (0-3) Neutrophils # (Auto) 33.1 x10^3/uL (1.8-7.7) Lymphocytes # (Auto) 1.8 x10^3/uL (1.0-4.8) Monocytes # (Auto) 1.0 x10^3/uL (0.0-1.1) Eosinophils # (Auto) 0.0 x10^3/uL (0.0-0.7) Basophils # (Auto) 0.1 x10^3/uL (0.0-0.2) Phosphorus Level 7.4 mg/dL (2.6-4.7) Magnesium Level 2.4 mg/dL (1.8-2.4) Impression . IMPRESSION: 1. Acute hypoxemic hypercapnic respiratory failure, multifactorial. 2. Abnormal CT chest revealing no evidence of pulmonary embolism. There was evidence of confluent heterogeneous lung masses compatible with a history of stage 4 lung cancer. 3. History of stage 4 lung cancer. 4. Hypotension related to sepsis. 5. Sepsis. 6. Possible postobstructive pneumonia. 7. Chronic obstructive pulmonary disease. 8. Hyperkalemia. Plan . Spoke with patient, sure wishes are not to be intubated We will concentrate on comfort care Change CODE STATUS to DO NOT INTUBATE We will discuss with family on the possibility of hospice, For now continue current care and support PLAN: 1. Continue support with BiPAP. The patient does not wish to be intubated. 2. Continue IV fluids. 3. Pressors to maintain mean arterial pressure above 60. 4. IV antibiotics. 5. DVT prophylaxis. HIWOT CARRILLO MD Dec 13, 2020 09:59
[2020-12-13] MEDS: CEFEPIME HCL IV Push 2 GM VIAL. IVP SCH (10:16)
[2020-12-13] MEDS: PANTOPRAZOLE IV PUSH 40 MG VIAL. IVP SCH (10:33)
[2020-12-13] MEDS: HEPARIN for SUB-Q USE 5,000 UNIT/ML VIAL. SQ SCH ×3 (10:35→20:49)
--- NOTE | 2020-12-13 11:12 | PDOC ---
Provider Note Date of Service: DATE: 12/13/20 TIME: 11:11 Provider Note came in, I spoke with him Patient with known stage IV lung cancer Apparently [facility], Patient and patient's have agreed to DO NOT INTUBATE, DO NOT RESUSCITATE I will change the partial CODE STATUS to full DO NOT RESUSCITATE RN to help patient's family address hospice services at home For now we will continue antibiotics, pain control. Justifications for Admission Other Justification Sepsis HIWOT CARRILLO MD Dec 13, 2020 11:12
[2020-12-13] MEDS: VANCOMYCIN 750 MG in IV NORMAL SALINE 250ML 250 ML IV SCH (11:21)
--- NOTE | 2020-12-13 12:25 | PDOC ---
GENERAL General: Patient examined chart reviewed discussed with , nursing, and Dr. Chambers. Today's hospital day 2 for this patient with end-stage metastatic lung cancer. She has a and was at [facility] when she acutely worsened yesterday she and her hospice nurse decided to send her to the emergency department. Dr. Chambers spoke with patient's earlier this morning and then arrived at bedside and I was able to talk to him further. Patient appears to have the main goal of alleviating suffering. At this point she is extremely dyspneic on the BiPAP. We will dose morphine hourly to treat her air hunger. She appears to have superimposed pneumonia and is currently on broad-spectrum antibiotics. We will continue that with the goal of getting her symptoms and better control. She and her hope to have her home with hospice in the next several days. Her CODE STATUS has been moved back to DO NOT RESUSCITATE DO NOT INTUBATE. We are continuing pressor medication for now however. Time spent today is 30 minutes with greater than 50% in counseling and coordination of care most of which in discussion with patient, , and team. Problems: (1) Lung cancer, primary, with metastasis from lung to other site (2) Malignant cachexia (3) Respiratory failure with hypoxia (4) Pneumonia VITAL SIGNS Vital Signs/I&O: Vital Signs Date Time Temp Pulse Resp B/P (MAP) Pulse Ox O2 Delivery O2 Flow Rate FiO2 12/13/20 10:53 89 BiPAP/CPAP 12/13/20 06:00 85 24 97/57 12/13/20 04:00 97.5 97.5 12/12/20 08:35 15.0 I & O 12/12/20 12/12/20 12/13/20 15:00 23:00 07:00 Intake Total 3250 ml 995 ml 1421 ml Output Total 365 ml 535 ml 310 ml Balance 2885 ml 460 ml 1111 ml In general the patient is cachectic dyspneic on the BiPAP appropriately interactive Chest notable for marked dyspnea bilateral equal air entry though diminished throughout Heart S1-S2 normal regular rate and rhythm no murmurs or gallops are noted Abdomen soft nontender nondistended no masses organomegaly noted Extremity exam is unremarkable for acute abnormality ALLERGIES Allergies: Allergies Coded Allergies Type Severity Reaction Last Updated Verified No Known Drug Allergies 12/12/20 No MEDS Medications: Current Medications Medications (Trade) Dose Ordered Sig/Aaron Start Time Stop Time Status Last Admin Dose Admin Acetaminophen (Tylenol) 650 mg PRN Q4HRS PRN 12/12/20 14:45 Atropine Sulfate (ATROPINE 0.5mg SYRINGE) 0.5 mg PRN Q5MIN PRN 12/12/20 11:00 Calcium Gluconate (Calcium Gluconate) 2,000 mg 1X ONCE 12/12/20 09:00 12/12/20 09:01 DC 12/12/20 09:13 Cefepime HCl (Maxipime) 2 gm DAILY 12/13/20 09:00 12/13/20 10:16 Ceftriaxone Sodium (Rocephin) 2 gm 1X ONCE 12/12/20 08:15 12/12/20 08:16 DC 12/12/20 08:26 Dexmedetomidine HCl 400 mcg/ Sodium Chloride 100 ml @ 2.27 mls/hr CONT PRN 12/12/20 11:00 12/13/20 05:21 Dextrose (Dextrose 50%-Water Syringe) 25 gm 1X ONCE 12/12/20 15:45 12/12/20 15:46 DC 12/12/20 17:26 Docusate Sodium (Colace) 100 mg PRN DAILY PRN 12/12/20 14:45 Furosemide (Lasix) 40 mg 1X ONCE 12/12/20 18:30 12/12/20 18:33 DC 12/12/20 18:49 Haloperidol Lactate (Haldol Inj) 5 mg PRN Q6HRS PRN 12/12/20 21:00 Heparin Sodium (Porcine) (Heparin Sodium) 5,000 unit Q12HR 12/12/20 15:00 12/13/20 10:35 Info (FLU VACCINE SCREEN per RX) 1 each PRN DAILY PRN 12/12/20 22:15 Insulin Human Regular (HumuLIN R VIAL) 10 unit 1X ONCE 12/12/20 15:45 12/12/20 15:46 DC 12/12/20 17:28 Iohexol (Omnipaque 350 Mg/ml) 80 ml 1X ONCE 12/12/20 09:00 12/12/20 09:01 DC 12/12/20 09:45 Lorazepam (Ativan Inj) 0.25 mg PRN Q4HRS PRN 12/12/20 14:45 12/12/20 20:55 Lorazepam (Ativan) 0.5 mg PRN Q6HRS PRN 12/12/20 14:45 Metronidazole 100 ml @ 100 mls/hr 1X ONCE 12/12/20 09:30 12/12/20 10:29 DC 12/12/20 13:51 Morphine Sulfate (Morphine Sulfate) 2 mg Q1HR PRN 12/13/20 12:30 UNV Norepinephrine Bitartrate 8 mg/ Dextrose 258 ml @ 8.785 mls/ hr CONT PRN 12/12/20 16:30 12/13/20 11:20 Ondansetron HCl (Zofran) 4 mg PRN Q6HRS PRN 12/12/20 14:45 Pantoprazole Sodium (PROTONIX VIAL for IV PUSH) 40 mg DAILYAC 12/12/20 16:30 12/13/20 10:33 Prochlorperazine Edisylate (Compazine) 10 mg PRN Q6HRS PRN 12/12/20 14:45 Ringer's Solution 500 ml @ 500 mls/hr 1X ONCE 12/12/20 13:15 12/12/20 14:14 DC 12/12/20 13:15 Sennosides (Senna) 17.2 mg PRN BID PRN 12/12/20 14:45 Sodium Chloride 1,000 ml @ 75 mls/hr 1X ONCE 12/12/20 15:30 12/13/20 04:49 DC 12/12/20 15:30 Vancomycin HCl (Vanco Per Pharmacy) 1 each PRN DAILY PRN 12/12/20 09:30 12/13/20 07:47 Vancomycin HCl (Vancomycin Trough Level) 1 each 1X ONCE 12/14/20 10:30 12/14/20 10:31 Vancomycin HCl 750 mg/Sodium Chloride 250 ml @ 250 mls/hr Q24H 12/13/20 11:00 12/13/20 11:21 Zolpidem Tartrate (Ambien) 2.5 mg PRN QHS PRN 12/12/20 14:45 Current Medications Medications (Trade) Dose Ordered Sig/Aaron Route PRN Reason Start Time Stop Time Status Last Admin Dose Admin Cefepime HCl (Maxipime) 2 gm DAILY IVP 12/13/20 09:00 12/13/20 10:16 Metronidazole 100 ml @ 100 mls/hr Q12HR IV 12/12/20 21:00 12/13/20 10:16 Ringer's Solution 500 ml @ 500 mls/hr 1X ONCE IV 12/12/20 13:15 12/12/20 14:14 DC 12/12/20 13:15 Lorazepam (Ativan Inj) 0.25 mg PRN Q4HRS PRN IV ANXIETY 12/12/20 14:45 12/12/20 20:55 Heparin Sodium (Porcine) (Heparin Sodium) 5,000 unit Q12HR SQ 12/12/20 15:00 12/13/20 10:35 Pantoprazole Sodium (PROTONIX VIAL for IV PUSH) 40 mg DAILYAC IVP 12/12/20 16:30 12/13/20 10:33 Sodium Chloride 1,000 ml @ 75 mls/hr 1X ONCE IV 12/12/20 15:30 12/13/20 04:49 DC 12/12/20 15:30 Insulin Human Regular (HumuLIN R VIAL) 10 unit 1X ONCE IV 12/12/20 15:45 12/12/20 15:46 DC 12/12/20 17:28 Dextrose (Dextrose 50%-Water Syringe) 25 gm 1X ONCE IV 12/12/20 15:45 12/12/20 15:46 DC 12/12/20 17:26 Norepinephrine Bitartrate 8 mg/ Dextrose 258 ml @ 8.785 mls/ hr CONT PRN IV PER PROTOCOL 12/12/20 16:30 12/13/20 11:20 Vancomycin HCl 750 mg/Sodium Chloride 250 ml @ 250 mls/hr Q24H IV 12/13/20 11:00 12/13/20 11:21 Furosemide (Lasix) 40 mg 1X ONCE IVP 12/12/20 18:30 12/12/20 18:33 DC 12/12/20 18:49 Haloperidol Lactate (Haldol Inj) 5 mg 1X ONCE IVP 12/12/20 21:30 12/12/20 21:31 DC 12/12/20 21:46 LAB Lab: Laboratory Tests Test 12/12/20 13:05 12/13/20 04:55 12/13/20 08:00 Sodium Level 137 mmol/L (136-145) 137 mmol/L (136-145) Potassium Level 6.3 mmol/L (3.5-5.1) *H 5.8 mmol/L (3.5-5.1) H Chloride Level 103 mmol/L (98-107) 104 mmol/L (98-107) Carbon Dioxide Level 27 mmol/L (21-32) 24 mmol/L (21-32) Anion Gap 7 (6-14) 9 (6-14) Blood Urea Nitrogen 53 mg/dL (7-20) H 55 mg/dL (7-20) H Creatinine 1.1 mg/dL (0.6-1.0) H 1.1 mg/dL (0.6-1.0) H Estimated GFR (Cockcroft-Gault) 61.3 61.3 Glucose Level 120 mg/dL (70-99) H 184 mg/dL (70-99) H Calcium Level 8.5 mg/dL (8.5-10.1) 8.2 mg/dL (8.5-10.1) L Procalcitonin 2.54 ng/mL (0.00-0.10) H White Blood Count 36.0 x10^3/uL (4.0-11.0) H Red Blood Count 3.54 x10^6/uL (3.50-5.40) Hemoglobin 8.4 g/dL (12.0-15.5) L Hematocrit 28.2 % (36.0-47.0) L Mean Corpuscular Volume 80 fL (79-100) Mean Corpuscular Hemoglobin 24 pg (25-35) L Mean Corpuscular Hemoglobin Concent 30 g/dL (31-37) L Red Cell Distribution Width 19.6 % (11.5-14.5) H Platelet Count 245 x10^3/uL (140-400) Neutrophils (%) (Auto) 92 % (31-73) H Lymphocytes (%) (Auto) 5 % (24-48) L Monocytes (%) (Auto) 3 % (0-9) Eosinophils (%) (Auto) 0 % (0-3) Basophils (%) (Auto) 0 % (0-3) Neutrophils # (Auto) 33.1 x10^3/uL (1.8-7.7) H Lymphocytes # (Auto) 1.8 x10^3/uL (1.0-4.8) Monocytes # (Auto) 1.0 x10^3/uL (0.0-1.1) Eosinophils # (Auto) 0.0 x10^3/uL (0.0-0.7) Basophils # (Auto) 0.1 x10^3/uL (0.0-0.2) Phosphorus Level 7.4 mg/dL (2.6-4.7) H Magnesium Level 2.4 mg/dL (1.8-2.4) O2 Saturation 94 % (92-99) Arterial Blood pH 7.20 (7.35-7.45) *L Arterial Blood pCO2 at Patient Temp 57 mmHg (35-46) H Arterial Blood pO2 at Patient Temp 82 mmHg (65-108) Arterial Blood HCO3 22 mmol/L (21-28) Arterial Blood Base Excess -6 mmol/L (-3-3) L FiO2 100/bipap Laboratory Tests 12/13/20 04:55 Laboratory Tests 12/12/20 13:05 12/13/20 04:55 ASSESSMENT & PLAN A&P Plan as noted above This note was created using [employer] and may have omissions and/or errors due to the nature of real-time voice trust and estates attorney. Justifications for Admission Other Justification Sepsis VAZQUEZ ALMANZAR MD Dec 13, 2020 12:25
[2020-12-13] MEDS: NOREPINEPHRINE VIAL 32 MG in IV D5W 250ML IV PRN (15:18)
[2020-12-13] MEDS: MORPHINE SULFATE 2 MG/ML INJ. IVP PRN ×2 (16:13→22:32)
[2020-12-14] VITALS (46 sets, daily range): BP systolic 69–119; BP diastolic 45–74
[2020-12-14] MEDS: MORPHINE SULFATE 2 MG/ML INJ. IVP PRN ×13 (02:16→23:40)
[2020-12-14] MEDS: NOREPINEPHRINE VIAL 32 MG in IV D5W 250ML IV PRN ×2 (02:47→14:29)
[2020-12-14] MEDS: DEXMEDETOMIDINE 400 MCG in IV NORMAL SALINE 100ML 96 ML IV PRN ×2 (05:12→14:28)
--- NOTE | 2020-12-14 06:02 | PDOC ---
PULMONARY PROGRESS NOTES DATE: 12/14/20 TIME: 06:01 Subjective Patient currently on BiPAP sleeping She knows that she has stage IV cancer discussed yesterday Reviewed the options of intubation versus not intubation, patient elected to proceed with DO NOT INTUBATE Vitals Vital Signs Date Time Temp Pulse Resp B/P (MAP) Pulse Ox O2 Delivery O2 Flow Rate FiO2 12/14/20 05:00 128 37 114/74 88 BiPAP/CPAP 12/14/20 04:00 98.0 98.0 ROS: No Nausea, No Chest Pain, No Abdominal Pain, No Increase Cough General: Alert Lungs: Crackles, Other (Diminished breath) Cardiovascular: S1, S2 Abdomen: Soft Neuro Exam: Alert Extremities: No Edema Skin: Warm Labs Laboratory Tests Test 12/12/20 08:02 12/12/20 08:14 12/12/20 08:20 12/12/20 08:35 O2 Saturation 93 % (92-99) Arterial Blood pH 7.27 (7.35-7.45) Arterial Blood pCO2 at Patient Temp 58 mmHg (35-46) Arterial Blood pO2 at Patient Temp 82 mmHg (65-108) Arterial Blood HCO3 26 mmol/L (21-28) Arterial Blood Base Excess -2 mmol/L (-3-3) FiO2 100% bipap White Blood Count 29.0 x10^3/uL (4.0-11.0) Red Blood Count 3.47 x10^6/uL (3.50-5.40) Hemoglobin 8.2 g/dL (12.0-15.5) Hematocrit 26.9 % (36.0-47.0) Mean Corpuscular Volume 78 fL (79-100) Mean Corpuscular Hemoglobin 24 pg (25-35) Mean Corpuscular Hemoglobin Concent 31 g/dL (31-37) Red Cell Distribution Width 19.0 % (11.5-14.5) Platelet Count 263 x10^3/uL (140-400) Neutrophils (%) (Auto) 93 % (31-73) Lymphocytes (%) (Auto) 5 % (24-48) Monocytes (%) (Auto) 2 % (0-9) Eosinophils (%) (Auto) 0 % (0-3) Basophils (%) (Auto) 0 % (0-3) Neutrophils # (Auto) 26.8 x10^3/uL (1.8-7.7) Lymphocytes # (Auto) 1.5 x10^3/uL (1.0-4.8) Monocytes # (Auto) 0.6 x10^3/uL (0.0-1.1) Eosinophils # (Auto) 0.0 x10^3/uL (0.0-0.7) Basophils # (Auto) 0.1 x10^3/uL (0.0-0.2) Segmented Neutrophils % 93 % (35-66) Band Neutrophils % 1 % (0-9) Lymphocytes % 4 % (24-48) Monocytes % 2 % (0-10) Nucleated Red Blood Cells 1 Platelet Estimate Adequate (ADEQUATE) Sodium Level 136 mmol/L (136-145) Potassium Level 6.7 mmol/L (3.5-5.1) Chloride Level 102 mmol/L (98-107) Carbon Dioxide Level 28 mmol/L (21-32) Anion Gap 6 (6-14) Blood Urea Nitrogen 50 mg/dL (7-20) Creatinine 1.1 mg/dL (0.6-1.0) Estimated GFR (Cockcroft-Gault) 61.3 Glucose Level 106 mg/dL (70-99) Lactic Acid Level 1.7 mmol/L (0.4-2.0) Calcium Level 8.2 mg/dL (8.5-10.1) Troponin I Quantitative 0.020 ng/mL (0.000-0.055) NV-[id number]-I-Type Natriuretic Peptide 895 pg/mL (0-124) SARS-CoV-2 RNA (JIMMY) Negative (Negative) SARS-CoV-2 Antigen (Rapid) Negative (NEGATIVE) Urine Collection Type Unknown Urine Color Yellow Urine Clarity Cloudy Urine pH 5.0 (<5.0-8.0) Urine Specific [place] 1.020 (1.000-1.030) Urine Protein 30 mg/dL (NEG-TRACE) Urine Glucose (UA) Negative mg/dL (NEG) Urine Ketones (Stick) Negative mg/dL (NEG) Urine Blood Negative (NEG) Urine Nitrite Negative (NEG) Urine Bilirubin Small (NEG) Urine Urobilinogen Dipstick 1.0 mg/dL (0.2 mg/dL) Urine Leukocyte Esterase Negative (NEG) Urine RBC 0 /HPF (0-2) Urine WBC 1-4 /HPF (0-4) Urine Squamous Epithelial Cells Mod /LPF Urine Bacteria Few /HPF (0-FEW) Urine Hyaline Casts Many /HPF Urine Mucus Marked /LPF Test 12/12/20 12:16 12/12/20 13:05 12/13/20 04:55 12/13/20 08:00 O2 Saturation 96 % (92-99) 94 % (92-99) Arterial Blood pH 7.22 (7.35-7.45) 7.20 (7.35-7.45) Arterial Blood pCO2 at Patient Temp 61 mmHg (35-46) 57 mmHg (35-46) Arterial Blood pO2 at Patient Temp 102 mmHg (65-108) 82 mmHg (65-108) Arterial Blood HCO3 24 mmol/L (21-28) 22 mmol/L (21-28) Arterial Blood Base Excess -4 mmol/L (-3-3) -6 mmol/L (-3-3) FiO2 100 100/bipap Sodium Level 137 mmol/L (136-145) 137 mmol/L (136-145) Potassium Level 6.3 mmol/L (3.5-5.1) 5.8 mmol/L (3.5-5.1) Chloride Level 103 mmol/L (98-107) 104 mmol/L (98-107) Carbon Dioxide Level 27 mmol/L (21-32) 24 mmol/L (21-32) Anion Gap 7 (6-14) 9 (6-14) Blood Urea Nitrogen 53 mg/dL (7-20) 55 mg/dL (7-20) Creatinine 1.1 mg/dL (0.6-1.0) 1.1 mg/dL (0.6-1.0) Estimated GFR (Cockcroft-Gault) 61.3 61.3 Glucose Level 120 mg/dL (70-99) 184 mg/dL (70-99) Calcium Level 8.5 mg/dL (8.5-10.1) 8.2 mg/dL (8.5-10.1) Procalcitonin 2.54 ng/mL (0.00-0.10) White Blood Count 36.0 x10^3/uL (4.0-11.0) Red Blood Count 3.54 x10^6/uL (3.50-5.40) Hemoglobin 8.4 g/dL (12.0-15.5) Hematocrit 28.2 % (36.0-47.0) Mean Corpuscular Volume 80 fL (79-100) Mean Corpuscular Hemoglobin 24 pg (25-35) Mean Corpuscular Hemoglobin Concent 30 g/dL (31-37) Red Cell Distribution Width 19.6 % (11.5-14.5) Platelet Count 245 x10^3/uL (140-400) Neutrophils (%) (Auto) 92 % (31-73) Lymphocytes (%) (Auto) 5 % (24-48) Monocytes (%) (Auto) 3 % (0-9) Eosinophils (%) (Auto) 0 % (0-3) Basophils (%) (Auto) 0 % (0-3) Neutrophils # (Auto) 33.1 x10^3/uL (1.8-7.7) Lymphocytes # (Auto) 1.8 x10^3/uL (1.0-4.8) Monocytes # (Auto) 1.0 x10^3/uL (0.0-1.1) Eosinophils # (Auto) 0.0 x10^3/uL (0.0-0.7) Basophils # (Auto) 0.1 x10^3/uL (0.0-0.2) Phosphorus Level 7.4 mg/dL (2.6-4.7) Magnesium Level 2.4 mg/dL (1.8-2.4) Laboratory Tests Test 12/13/20 08:00 O2 Saturation 94 % (92-99) Arterial Blood pH 7.20 (7.35-7.45) Arterial Blood pCO2 at Patient Temp 57 mmHg (35-46) Arterial Blood pO2 at Patient Temp 82 mmHg (65-108) Arterial Blood HCO3 22 mmol/L (21-28) Arterial Blood Base Excess -6 mmol/L (-3-3) FiO2 100/bipap Impression . IMPRESSION: 1. Acute hypoxemic hypercapnic respiratory failure, multifactorial. 2. Abnormal CT chest revealing no evidence of pulmonary embolism. There was evidence of confluent heterogeneous lung masses compatible with a history of stage 4 lung cancer. 3. History of stage 4 lung cancer. 4. Hypotension related to sepsis. 5. Sepsis. 6. Possible postobstructive pneumonia. 7. Chronic obstructive pulmonary disease. 8. Hyperkalemia. Plan . Updated 12/14 Continue current support We will discuss with social service in the a.m. on possible discharge with hospice Patient DNR Discussed with yesterday Discussed with patient spoke with patient, sure wishes are not to be intubated We will concentrate on comfort care Change CODE STATUS to DO NOT INTUBATE We will discuss with family on the possibility of hospice, For now continue current care and support PLAN: 1. Continue support with BiPAP. The patient does not wish to be intubated. 2. Continue IV fluids. 3. Pressors to maintain mean arterial pressure above 60. 4. IV antibiotics. 5. DVT prophylaxis. HIWOT CARRILLO MD Dec 14, 2020 06:02
[2020-12-14] MEDS: PANTOPRAZOLE IV PUSH 40 MG VIAL. IVP SCH (08:48)
[2020-12-14] MEDS: HEPARIN for SUB-Q USE 5,000 UNIT/ML VIAL. SQ SCH ×2 (09:00→21:33)
[2020-12-14] MEDS: CEFEPIME HCL IV Push 2 GM VIAL. IVP SCH (11:00)
[2020-12-14] MEDS: VASOPRESSIN - VASOSTRICT 20 UNIT in IV DEXTROSE 5% 100ML 100 ML IV PRN ×2 (11:06→16:48)
[2020-12-14 11:18] LABS: BASO % 0 % (0-3); EOS % 0 % (0-3); HEMATOCRIT 26.5 % (36.0-47.0); HEMOGLOBIN 7.9 g/dL (12.0-15.5); LYMPH # 1.6 x10^3/uL (1.0-4.8); LYMPH % 6 % (24-48); MEAN CORPUSCULAR HEMOGLOBIN 24 pg (25-35); MEAN CORPUSCULAR HGB CONC 30 g/dL (31-37); MEAN CORPUSCULAR VOLUME 80 fL (79-100); MONO # 0.7 x10^3/uL (0.0-1.1); MONO % 3 % (0-9); NEUT # 24.6 x10^3/uL (1.8-7.7); NEUT % 91 % (31-73); PLATELET COUNT 148 x10^3/uL (140-400); RED BLOOD COUNT 3.33 x10^6/uL (3.50-5.40); RED CELL DISTRIBUTION WIDTH 19.1 % (11.5-14.5); WHITE BLOOD COUNT 26.9 x10^3/uL (4.0-11.0)
[2020-12-14 11:25] LABS: CALCIUM 8.1 mg/dL (8.5-10.1); CREATININE 1.7 mg/dL (0.6-1.0); GFR 37.1; MAGNESIUM 2.4 mg/dL (1.8-2.4)
[2020-12-14 11:30] LABS: VANC TR 13.4 mcg/mL (10.0-20.0)
[2020-12-14 11:44] LABS: POTASSIUM 6.7 mmol/L (3.5-5.1)
[2020-12-14] MEDS: VANCOMYCIN PER PHARMACY MC PRN (11:56)
[2020-12-14] MEDS: VANCOMYCIN 750 MG in IV NORMAL SALINE 250ML 250 ML IV SCH (12:01)
--- NOTE | 2020-12-14 12:02 | NUR ---
Pharmacy Vancomycin Dosing Note S: Consulted to monitor and dose vancomycin started 12/12/20. O: CRISTOFER THOMAS is a 60 year old F with Sepsis, Pneumonia, . Other Antibiotics: Cefepime Metronidazole LABS: Last BUN: 63 Last Creatinine: 1.7 Creatinine Clearance: 28 mL/min Last WBC: 26.9 Last Procalcitonin: 2.54 Tmax (past 24 hours): 98.3 Microbiology: - I/O: 5666/1210 Drug Levels: Last Trough level: 13.4 on 12/14/20 at 1055 Last dose given 12/13/20 at 1121 Vancomycin Dosing: Dosing Weight: Actual Target Trough: 15-20 A: Based on: trough and worsening renal function P: 1. Dose Vancomycin 750 mg IV 1x today and reassess tomorrow pending family/patient plans 2. Follow up Trough as needed 3. Pharmacy will continue to monitor, follow and adjust therapy as needed. Yoly Moss RPH, 12/14/20 [id number]
--- NOTE | 2020-12-14 12:30 | PDOC ---
GENERAL General: Patient examined chart reviewed discussed with nursing. has gone to [place] a niece and they are expected to arrive back within the next few hours. Patient has had severe hypotension requiring two pressors to keep her mean arterial pressure up over 60. She is actively dying of her stage IV lung cancer. It is unclear if she will even make it home with hospice. She is a DO NOT RESUSCITATE DO NOT INTUBATE but at this point the BiPAP and pressor medications have been continued. We will need to work with the family on the stopping those interventions when they are ready. We are using morphine for air hunger and that is helping some. Problems: (1) Lung cancer, primary, with metastasis from lung to other site (2) Malignant cachexia (3) Respiratory failure with hypoxia (4) Pneumonia VITAL SIGNS Vital Signs/I&O: Vital Signs Date Time Temp Pulse Resp B/P (MAP) Pulse Ox O2 Delivery O2 Flow Rate FiO2 12/14/20 12:04 28 77 BiPAP/CPAP 15.0 12/14/20 11:00 87/56 12/14/20 09:30 144 12/14/20 08:05 97.6 97.6 I & O 12/13/20 12/13/20 12/14/20 15:00 23:00 07:00 Intake Total 700 ml 2591 ml 463 ml Output Total 310 ml 130 ml 210 ml Balance 390 ml 2461 ml 253 ml Patient is laying in bed awake markedly dyspneic on the BiPAP with high flow oxygen makes eye contact and nods appropriately Chest notable for agonal severe dyspnea on the BiPAP Heart S1-S2 normal regular rate and rhythm no murmurs or gallops are noted Abdomen soft nontender nondistended no masses organomegaly noted Extremity exam is unremarkable for acute abnormality. Patient is markedly cachectic ALLERGIES Allergies: Allergies Coded Allergies Type Severity Reaction Last Updated Verified No Known Drug Allergies 12/12/20 No MEDS Medications: Current Medications Medications (Trade) Dose Ordered Sig/Aaron Route PRN Reason Start Time Stop Time Status Last Admin Dose Admin Vancomycin HCl (Vancomycin Trough Level) 1 each 1X ONCE MC 12/14/20 10:30 12/14/20 10:31 DC 12/14/20 10:30 Morphine Sulfate (Morphine Sulfate) 2 mg PRN Q1HR PRN IVP PAIN 12/13/20 12:30 12/14/20 12:04 Norepinephrine Bitartrate 32 mg/ Dextrose 250 ml @ 2.498 mls/ hr CONT PRN IV SEE I/O RECORD 12/13/20 15:15 12/14/20 02:47 Vasopressin 20 unit/Dextrose 101 ml @ 12 mls/hr CONT PRN IV SEE I/O RECORD 12/14/20 10:30 12/14/20 11:06 LAB Lab: Laboratory Tests Test 12/14/20 10:55 White Blood Count 26.9 x10^3/uL (4.0-11.0) H Red Blood Count 3.33 x10^6/uL (3.50-5.40) L Hemoglobin 7.9 g/dL (12.0-15.5) L Hematocrit 26.5 % (36.0-47.0) L Mean Corpuscular Volume 80 fL (79-100) Mean Corpuscular Hemoglobin 24 pg (25-35) L Mean Corpuscular Hemoglobin Concent 30 g/dL (31-37) L Red Cell Distribution Width 19.1 % (11.5-14.5) H Platelet Count 148 x10^3/uL (140-400) Neutrophils (%) (Auto) 91 % (31-73) H Lymphocytes (%) (Auto) 6 % (24-48) L Monocytes (%) (Auto) 3 % (0-9) Eosinophils (%) (Auto) 0 % (0-3) Basophils (%) (Auto) 0 % (0-3) Neutrophils # (Auto) 24.6 x10^3/uL (1.8-7.7) H Lymphocytes # (Auto) 1.6 x10^3/uL (1.0-4.8) Monocytes # (Auto) 0.7 x10^3/uL (0.0-1.1) Eosinophils # (Auto) 0.0 x10^3/uL (0.0-0.7) Basophils # (Auto) 0.0 x10^3/uL (0.0-0.2) Sodium Level 133 mmol/L (136-145) L Potassium Level 6.7 mmol/L (3.5-5.1) *H Chloride Level 101 mmol/L (98-107) Carbon Dioxide Level 22 mmol/L (21-32) Anion Gap 10 (6-14) Blood Urea Nitrogen 63 mg/dL (7-20) H Creatinine 1.7 mg/dL (0.6-1.0) H Estimated GFR (Cockcroft-Gault) 37.1 Glucose Level 149 mg/dL (70-99) H Calcium Level 8.1 mg/dL (8.5-10.1) L Magnesium Level 2.4 mg/dL (1.8-2.4) Vancomycin Level Trough 13.4 mcg/mL (10.0-20.0) Vancomycin Last Dose Date 12/13/20 Vancomycin Last Dose Time 1100 Laboratory Tests 12/14/20 10:55 Laboratory Tests 12/14/20 10:55 ASSESSMENT & PLAN A&P Plan as noted above This note was created using [employer] and may have omissions and/or errors due to 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 Justifications for Admission Other Justification Sepsis VAZQUEZ ALMANZAR MD Dec 14, 2020 12:30
[2020-12-14] MEDS: PHENYLEPHRINE INJ 50 MG in IV NORMAL SALINE 250ML 250 ML IV PRN (20:04)
[2020-12-15] VITALS (23 sets, daily range): BP systolic 76–99; BP diastolic 41–56
[2020-12-15] MEDS: NOREPINEPHRINE VIAL 32 MG in IV D5W 250ML IV PRN ×2 (01:33→10:12)
[2020-12-15] MEDS: DEXMEDETOMIDINE 400 MCG in IV NORMAL SALINE 100ML 96 ML IV PRN ×2 (01:36→10:10)
[2020-12-15] MEDS: VASOPRESSIN - VASOSTRICT 20 UNIT in IV DEXTROSE 5% 100ML 100 ML IV PRN ×2 (01:36→10:11)
[2020-12-15] MEDS: MORPHINE SULFATE 2 MG/ML INJ. IVP PRN ×5 (01:38→10:20)
[2020-12-15 04:43] LABS: BASO # 0.1 x10^3/uL (0.0-0.2); BASO % 0 % (0-3); EOS % 0 % (0-3); HEMATOCRIT 26.4 % (36.0-47.0); HEMOGLOBIN 7.9 g/dL (12.0-15.5); LYMPH # 3.2 x10^3/uL (1.0-4.8); LYMPH % 11 % (24-48); MEAN CORPUSCULAR HEMOGLOBIN 24 pg (25-35); MEAN CORPUSCULAR HGB CONC 30 g/dL (31-37); MEAN CORPUSCULAR VOLUME 80 fL (79-100); MONO # 0.6 x10^3/uL (0.0-1.1); MONO % 2 % (0-9); NEUT % 87 % (31-73); PLATELET COUNT 137 x10^3/uL (140-400); RED BLOOD COUNT 3.29 x10^6/uL (3.50-5.40); RED CELL DISTRIBUTION WIDTH 19.1 % (11.5-14.5)
[2020-12-15 05:19] LABS: CALCIUM 7.7 mg/dL (8.5-10.1); CREATININE 2.6 mg/dL (0.6-1.0); GFR 22.7; MAGNESIUM 2.5 mg/dL (1.8-2.4)
[2020-12-15] MEDS ORDERED: INSULIN REGULAR 100 UNIT/ML 3ML VIAL. IV ONE (06:15)
[2020-12-15] MEDS ORDERED: DEXTROSE 50% 25 GM / 50ML DISP.SYRIN. IV ONE (06:15)
[2020-12-15] MEDS: PANTOPRAZOLE IV PUSH 40 MG VIAL. IVP SCH (07:30)
[2020-12-15] MEDS: HEPARIN for SUB-Q USE 5,000 UNIT/ML VIAL. SQ SCH (07:51)
--- NOTE | 2020-12-15 08:51 | PDOC ---
PULMONARY PROGRESS NOTES DATE: 12/15/20 TIME: 08:51 Subjective Patient currently on BiPAP sleeping She knows that she has stage IV cancer discussed yesterday Reviewed the options of intubation versus not intubation, patient elected to proceed with DO NOT INTUBATE Vitals Vital Signs Date Time Temp Pulse Resp B/P (MAP) Pulse Ox O2 Delivery O2 Flow Rate FiO2 12/15/20 08:25 80 BiPAP/CPAP 12/15/20 08:23 34 12/15/20 08:00 116 86/46 12/15/20 04:41 15.0 12/15/20 04:00 100.3 100.3 ROS: No Nausea, No Chest Pain, No Abdominal Pain, No Increase Cough General: Alert Lungs: Crackles, Other (Diminished breath) Cardiovascular: S1, S2 Abdomen: Soft Neuro Exam: Alert Extremities: No Edema Skin: Warm Labs Laboratory Tests Test 12/14/20 10:55 12/15/20 04:20 White Blood Count 26.9 x10^3/uL (4.0-11.0) 29.0 x10^3/uL (4.0-11.0) Red Blood Count 3.33 x10^6/uL (3.50-5.40) 3.29 x10^6/uL (3.50-5.40) Hemoglobin 7.9 g/dL (12.0-15.5) 7.9 g/dL (12.0-15.5) Hematocrit 26.5 % (36.0-47.0) 26.4 % (36.0-47.0) Mean Corpuscular Volume 80 fL (79-100) 80 fL (79-100) Mean Corpuscular Hemoglobin 24 pg (25-35) 24 pg (25-35) Mean Corpuscular Hemoglobin Concent 30 g/dL (31-37) 30 g/dL (31-37) Red Cell Distribution Width 19.1 % (11.5-14.5) 19.1 % (11.5-14.5) Platelet Count 148 x10^3/uL (140-400) 137 x10^3/uL (140-400) Neutrophils (%) (Auto) 91 % (31-73) 87 % (31-73) Lymphocytes (%) (Auto) 6 % (24-48) 11 % (24-48) Monocytes (%) (Auto) 3 % (0-9) 2 % (0-9) Eosinophils (%) (Auto) 0 % (0-3) 0 % (0-3) Basophils (%) (Auto) 0 % (0-3) 0 % (0-3) Neutrophils # (Auto) 24.6 x10^3/uL (1.8-7.7) 25.0 x10^3/uL (1.8-7.7) Lymphocytes # (Auto) 1.6 x10^3/uL (1.0-4.8) 3.2 x10^3/uL (1.0-4.8) Monocytes # (Auto) 0.7 x10^3/uL (0.0-1.1) 0.6 x10^3/uL (0.0-1.1) Eosinophils # (Auto) 0.0 x10^3/uL (0.0-0.7) 0.0 x10^3/uL (0.0-0.7) Basophils # (Auto) 0.0 x10^3/uL (0.0-0.2) 0.1 x10^3/uL (0.0-0.2) Sodium Level 133 mmol/L (136-145) 132 mmol/L (136-145) Potassium Level 6.7 mmol/L (3.5-5.1) 8.0 mmol/L (3.5-5.1) Chloride Level 101 mmol/L (98-107) 100 mmol/L (98-107) Carbon Dioxide Level 22 mmol/L (21-32) 21 mmol/L (21-32) Anion Gap 10 (6-14) 11 (6-14) Blood Urea Nitrogen 63 mg/dL (7-20) 79 mg/dL (7-20) Creatinine 1.7 mg/dL (0.6-1.0) 2.6 mg/dL (0.6-1.0) Estimated GFR (Cockcroft-Gault) 37.1 22.7 Glucose Level 149 mg/dL (70-99) 141 mg/dL (70-99) Calcium Level 8.1 mg/dL (8.5-10.1) 7.7 mg/dL (8.5-10.1) Magnesium Level 2.4 mg/dL (1.8-2.4) 2.5 mg/dL (1.8-2.4) Vancomycin Level Trough 13.4 mcg/mL (10.0-20.0) Vancomycin Last Dose Date 12/13/20 Vancomycin Last Dose Time 1100 Laboratory Tests Test 12/14/20 10:55 12/15/20 04:20 White Blood Count 26.9 x10^3/uL (4.0-11.0) 29.0 x10^3/uL (4.0-11.0) Red Blood Count 3.33 x10^6/uL (3.50-5.40) 3.29 x10^6/uL (3.50-5.40) Hemoglobin 7.9 g/dL (12.0-15.5) 7.9 g/dL (12.0-15.5) Hematocrit 26.5 % (36.0-47.0) 26.4 % (36.0-47.0) Mean Corpuscular Volume 80 fL (79-100) 80 fL (79-100) Mean Corpuscular Hemoglobin 24 pg (25-35) 24 pg (25-35) Mean Corpuscular Hemoglobin Concent 30 g/dL (31-37) 30 g/dL (31-37) Red Cell Distribution Width 19.1 % (11.5-14.5) 19.1 % (11.5-14.5) Platelet Count 148 x10^3/uL (140-400) 137 x10^3/uL (140-400) Neutrophils (%) (Auto) 91 % (31-73) 87 % (31-73) Lymphocytes (%) (Auto) 6 % (24-48) 11 % (24-48) Monocytes (%) (Auto) 3 % (0-9) 2 % (0-9) Eosinophils (%) (Auto) 0 % (0-3) 0 % (0-3) Basophils (%) (Auto) 0 % (0-3) 0 % (0-3) Neutrophils # (Auto) 24.6 x10^3/uL (1.8-7.7) 25.0 x10^3/uL (1.8-7.7) Lymphocytes # (Auto) 1.6 x10^3/uL (1.0-4.8) 3.2 x10^3/uL (1.0-4.8) Monocytes # (Auto) 0.7 x10^3/uL (0.0-1.1) 0.6 x10^3/uL (0.0-1.1) Eosinophils # (Auto) 0.0 x10^3/uL (0.0-0.7) 0.0 x10^3/uL (0.0-0.7) Basophils # (Auto) 0.0 x10^3/uL (0.0-0.2) 0.1 x10^3/uL (0.0-0.2) Sodium Level 133 mmol/L (136-145) 132 mmol/L (136-145) Potassium Level 6.7 mmol/L (3.5-5.1) 8.0 mmol/L (3.5-5.1) Chloride Level 101 mmol/L (98-107) 100 mmol/L (98-107) Carbon Dioxide Level 22 mmol/L (21-32) 21 mmol/L (21-32) Anion Gap 10 (6-14) 11 (6-14) Blood Urea Nitrogen 63 mg/dL (7-20) 79 mg/dL (7-20) Creatinine 1.7 mg/dL (0.6-1.0) 2.6 mg/dL (0.6-1.0) Estimated GFR (Cockcroft-Gault) 37.1 22.7 Glucose Level 149 mg/dL (70-99) 141 mg/dL (70-99) Calcium Level 8.1 mg/dL (8.5-10.1) 7.7 mg/dL (8.5-10.1) Magnesium Level 2.4 mg/dL (1.8-2.4) 2.5 mg/dL (1.8-2.4) Vancomycin Level Trough 13.4 mcg/mL (10.0-20.0) Vancomycin Last Dose Date 12/13/20 Vancomycin Last Dose Time 1100 Impression . IMPRESSION: 1. Acute hypoxemic hypercapnic respiratory failure, multifactorial. 2. Abnormal CT chest revealing no evidence of pulmonary embolism. There was evidence of confluent heterogeneous lung masses compatible with a history of stage 4 lung cancer. 3. History of stage 4 lung cancer. 4. Hypotension related to sepsis. 5. Sepsis. 6. Possible postobstructive pneumonia. 7. Chronic obstructive pulmonary disease. 8. Hyperkalemia. Plan . Updated 12/14 Continue current support We will discuss with social service in the a.m. on possible discharge with hospice Patient DNR Discussed with yesterday Discussed with patient spoke with patient, sure wishes are not to be intubated We will concentrate on comfort care Change CODE STATUS to DO NOT INTUBATE We will discuss with family on the possibility of hospice, For now continue current care and support PLAN: 1. Continue support with BiPAP. The patient does not wish to be intubated. 2. Continue IV fluids. 3. Pressors to maintain mean arterial pressure above 60. 4. IV antibiotics. 5. DVT prophylaxis. HIWOT CARRILLO MD Dec 15, 2020 08:51
[2020-12-15] MEDS: CEFEPIME HCL IV Push 2 GM VIAL. IVP SCH (09:00)
[2020-12-15] MEDS: VANCOMYCIN PER PHARMACY MC PRN (09:42)
[2020-12-15] MEDS: PHENYLEPHRINE INJ 50 MG in IV NORMAL SALINE 250ML 250 ML IV PRN (10:11)
--- NOTE | 2020-12-15 11:48 | PDOC3 ---
Discharge Summary Visit Information Date of Admission: Dec 12, 2020 Date of Discharge: Dec 15, 2020 Final Diagnosis 1. Acute hypoxemic hypercapnic respiratory failure, multifactorial. 2. post obstructive pneumonia on stage 4 lung cancer. 3. History of stage 4 lung cancer. 4. Severe sepsis. and septic shock 5. Chronic obstructive pulmonary disease. 6. Hyperkalemia. 7, acute renal failure, vasomotor nephropathy and ATN, worsened during admission 8, acute metabolic acidosis from renal fialure and sepsis Problems Medical Problems: (1) Hyperkalemia Status: Acute (2) Pneumonia Status: Acute (3) Respiratory failure with hypoxia Status: Acute (4) Sepsis Status: Acute Brief Hospital Course Allergies Allergies Coded Allergies Type Severity Reaction Last Updated Verified No Known Drug Allergies 12/12/20 No Vital Signs Vital Signs Date Time Temp Pulse Resp B/P (MAP) Pulse Ox O2 Delivery O2 Flow Rate FiO2 12/15/20 10:00 91 36 82/41 71 BiPAP/CPAP 12/15/20 04:41 15.0 12/15/20 04:00 100.3 100.3 Lab Results Laboratory Tests Test 12/14/20 10:55 12/15/20 04:20 White Blood Count 26.9 x10^3/uL (4.0-11.0) 29.0 x10^3/uL (4.0-11.0) Red Blood Count 3.33 x10^6/uL (3.50-5.40) 3.29 x10^6/uL (3.50-5.40) Hemoglobin 7.9 g/dL (12.0-15.5) 7.9 g/dL (12.0-15.5) Hematocrit 26.5 % (36.0-47.0) 26.4 % (36.0-47.0) Mean Corpuscular Volume 80 fL (79-100) 80 fL (79-100) Mean Corpuscular Hemoglobin 24 pg (25-35) 24 pg (25-35) Mean Corpuscular Hemoglobin Concent 30 g/dL (31-37) 30 g/dL (31-37) Red Cell Distribution Width 19.1 % (11.5-14.5) 19.1 % (11.5-14.5) Platelet Count 148 x10^3/uL (140-400) 137 x10^3/uL (140-400) Neutrophils (%) (Auto) 91 % (31-73) 87 % (31-73) Lymphocytes (%) (Auto) 6 % (24-48) 11 % (24-48) Monocytes (%) (Auto) 3 % (0-9) 2 % (0-9) Eosinophils (%) (Auto) 0 % (0-3) 0 % (0-3) Basophils (%) (Auto) 0 % (0-3) 0 % (0-3) Neutrophils # (Auto) 24.6 x10^3/uL (1.8-7.7) 25.0 x10^3/uL (1.8-7.7) Lymphocytes # (Auto) 1.6 x10^3/uL (1.0-4.8) 3.2 x10^3/uL (1.0-4.8) Monocytes # (Auto) 0.7 x10^3/uL (0.0-1.1) 0.6 x10^3/uL (0.0-1.1) Eosinophils # (Auto) 0.0 x10^3/uL (0.0-0.7) 0.0 x10^3/uL (0.0-0.7) Basophils # (Auto) 0.0 x10^3/uL (0.0-0.2) 0.1 x10^3/uL (0.0-0.2) Sodium Level 133 mmol/L (136-145) 132 mmol/L (136-145) Potassium Level 6.7 mmol/L (3.5-5.1) 8.0 mmol/L (3.5-5.1) Chloride Level 101 mmol/L (98-107) 100 mmol/L (98-107) Carbon Dioxide Level 22 mmol/L (21-32) 21 mmol/L (21-32) Anion Gap 10 (6-14) 11 (6-14) Blood Urea Nitrogen 63 mg/dL (7-20) 79 mg/dL (7-20) Creatinine 1.7 mg/dL (0.6-1.0) 2.6 mg/dL (0.6-1.0) Estimated GFR (Cockcroft-Gault) 37.1 22.7 Glucose Level 149 mg/dL (70-99) 141 mg/dL (70-99) Calcium Level 8.1 mg/dL (8.5-10.1) 7.7 mg/dL (8.5-10.1) Magnesium Level 2.4 mg/dL (1.8-2.4) 2.5 mg/dL (1.8-2.4) Vancomycin Level Trough 13.4 mcg/mL (10.0-20.0) Vancomycin Last Dose Date 12/13/20 Vancomycin Last Dose Time 1100 Laboratory Tests Test 12/15/20 04:20 White Blood Count 29.0 x10^3/uL (4.0-11.0) Red Blood Count 3.29 x10^6/uL (3.50-5.40) Hemoglobin 7.9 g/dL (12.0-15.5) Hematocrit 26.4 % (36.0-47.0) Mean Corpuscular Volume 80 fL (79-100) Mean Corpuscular Hemoglobin 24 pg (25-35) Mean Corpuscular Hemoglobin Concent 30 g/dL (31-37) Red Cell Distribution Width 19.1 % (11.5-14.5) Platelet Count 137 x10^3/uL (140-400) Neutrophils (%) (Auto) 87 % (31-73) Lymphocytes (%) (Auto) 11 % (24-48) Monocytes (%) (Auto) 2 % (0-9) Eosinophils (%) (Auto) 0 % (0-3) Basophils (%) (Auto) 0 % (0-3) Neutrophils # (Auto) 25.0 x10^3/uL (1.8-7.7) Lymphocytes # (Auto) 3.2 x10^3/uL (1.0-4.8) Monocytes # (Auto) 0.6 x10^3/uL (0.0-1.1) Eosinophils # (Auto) 0.0 x10^3/uL (0.0-0.7) Basophils # (Auto) 0.1 x10^3/uL (0.0-0.2) Sodium Level 132 mmol/L (136-145) Potassium Level 8.0 mmol/L (3.5-5.1) Chloride Level 100 mmol/L (98-107) Carbon Dioxide Level 21 mmol/L (21-32) Anion Gap 11 (6-14) Blood Urea Nitrogen 79 mg/dL (7-20) Creatinine 2.6 mg/dL (0.6-1.0) Estimated GFR (Cockcroft-Gault) 22.7 Glucose Level 141 mg/dL (70-99) Calcium Level 7.7 mg/dL (8.5-10.1) Magnesium Level 2.5 mg/dL (1.8-2.4) Brief Hospital Course Ms. Lange is a 60 old female with stage 4 metasatic lung cancer, that had been on hospice care previously, admit with hypoxia, fever, treaed for sepsis abx, and bipap, Patient DNR Dr. Chambers and Imani, Discussed with on 12/13 focus was made on comfort care on 12/14 Discharge Information Condition at Discharge: / Disposition/Orders: Patient Instructions Patient Instructions 41 min pt seen, family present pronounced at 1040am Justicifation of Admission Dx: Justifications for Admission: Justification of Admission Dx: Yes (severe sepsis) SUSIE ALLAN MD Dec 15, 2020 11:48
--- NOTE | 2020-12-15 12:33 | NUR ---
Patient's wanted to take patient home on hospice, had left the hospital to get things set up. Contacted [facility], which was the hospice group the patient had been using prior to admission, updated on condition and reason for admission, that RN then discussed the case with the hospice MD and said the patient will now need more help than they can offer at home, would transition to inpatient hospice or comfort care for now and call back within 24 hours if the patient was still alive. Notified Mata, the patient's , via telephone, and also notified the patient's brother and sister at the bedside. About 5 minutes later, the patient became bradycardic, rate in the 50s, and hypotensive, called Mata again to come back up to the hospital. Patient rhythm then changed to v-tach, then v-fib, and asystole at 1040 with the patient's brother and sister at the bedside. Notified Mata via telephone contact. Patient not a candidate for tissue, waiting to hear back from [facility]. Patient did not have any belongings at the bedside. home is [facility].
== END 2020-12-15 10:40 | DRG 871 ==
LOC: ER 07:48 → 1 WEST ICU 08:23
PROVIDERS: ADMIT Internal Medicine; ATTEND Internal Medicine
PROC: 5A09457 Assistance with Respiratory Ventilation, 24-96 Consecutive Hours, Continuous Positive Airway Pressure (ICD-10-PCS; principal; 2020-12-12)
DX: A41.9 Sepsis, unspecified organism (principal); J18.9 Pneumonia, unspecified organism; J96.01 Acute respiratory failure with hypoxia; J96.02 Acute respiratory failure with hypercapnia; N17.0 Acute kidney failure with tubular necrosis; R65.21 Severe sepsis with septic shock; C34.90 Malignant neoplasm of unspecified part of unspecified bronchus or lung; J44.0 Chronic obstructive pulmonary disease with (acute) lower respiratory infection; R64 Cachexia; E87.5 Hyperkalemia; Z66 Do not resuscitate; Z85.118 Personal history of other malignant neoplasm of bronchus and lung; Z87.891 Personal history of nicotine dependence; Z20.822 Contact with and (suspected) exposure to COVID-19; D50.9 Iron deficiency anemia, unspecified; Z51.5 Encounter for palliative care; Z68.22 Body mass index [BMI] 22.0-22.9, adult
CPT/HCPCS: 36415; 36600; 51702; 71045; 71275; 80048; 80202; 81001; 82805; 83605; 83735; 83880; 84100; 84145; 84484; 85007; 85025; 87040; 87077; 87205; 87426; 93005; 94660; 94760; 96361; 96365; 96375; C9113; J0610; J0692; J0696; J1630; J1644; J1815; J1940; J2060; J2270; J2370; J3370; J3490; J7030; J7040; J7050; J7060; J7120; Q9967; U0003; U0005; 99291-25; G0378